=== PATIENT | female | born 1935 | race Two or more races ===

== ENCOUNTER 2021-05-28 10:06 | Inpatient (IN) | payer OTHER, BC ==
[2021-05-28] MEDS ORDERED: SODIUM CHLORIDE 0.9% 500 ML INFUS.BAG IV ONE (12:07)
[2021-05-28 12:38] LABS: HEMATOCRIT 36.8 % (32.4-45.2); HEMOGLOBIN 12.5 GM/dL (10.7-15.3); MCH 30.8 pg (25.7-33.7); MCHC 33.9 g/dl (32.0-36.0); PLATELET COUNT 129 10^3/uL (134-434); RBC 4.05 M/mm3 (3.60-5.2); RDW 14.5 % (11.6-15.6); WHITE BLOOD COUNT 9.5 K/mm3 (4.0-10.0)
[2021-05-28 13:00] LABS: CALCIUM 9.2 mg/dL (8.5-10.1)
[2021-05-28 13:04] LABS: CREATININE 0.8 mg/dL (0.55-1.3); PHOSPHOROUS 2.7 mg/dL (2.5-4.9)
[2021-05-28 13:06] LABS: BILIRUBIN,TOTAL 2.1 mg/dL (0.2-1); TOT PROT 6.2 g/dl (6.4-8.2)
[2021-05-28] MEDS ORDERED: ASPIRIN 81 MG CHEWABLE TABLETS PO ONE (13:38)
[2021-05-28 14:25] LABS: EPI CELLS 34 /uL (0-25.1); HYALINE CASTS 2 /uL (0-3.1); URINE APPEARANCE CLEAR; URINE BACTERIA 156 /uL (0-1359); URINE BILIRUBIN NEGATIVE (NEGATIVE); URINE COLOR DK YELLOW; URINE GLUCOSE (UA) NEGATIVE (NEGATIVE); URINE KETONE 1+ (NEGATIVE); URINE LEUK ESTERASE 1+ (NEGATIVE); URINE NITRITE NEGATIVE (NEGATIVE); URINE PROTEIN TRACE (NEGATIVE); URINE WBC 32 /uL (0-25.8)
[2021-05-28] MEDS ORDERED: CEFTRIAXONE 1 GM in DEXTROSE 5%-WATER - 100 ML IVPB ONE (15:12)
[2021-05-28 15:23] LABS: ANISOCYTOSIS 2+; MACROCYTOSIS 0; OVALOCYTE 2+; PLATELET ESTIMATE DECREASED; TEAR DROP CELLS 1+
[2021-05-28] MEDS ORDERED: MIDAZOLAM HCL 2 MG/2 ML SINGLE DOSE VIAL IVPUSH ONE (15:26)
[2021-05-28] MEDS ORDERED: MIDAZOLAM HCL 2 MG/2 ML SINGLE DOSE VIAL ONE (15:27)
[2021-05-28] MEDS ORDERED: ASPIRIN 81 MG CHEWABLE TABLETS ONE (15:55)
[2021-05-28] MEDS ORDERED: CEFTRIAXONE 1 GM/50 ML BAG ONE (15:56)
[2021-05-28] MEDS ORDERED: metoPROLOL SUCCINATE 25 MG TAB.SR.24H (FP) ONE (19:52)
[2021-05-28] MEDS ORDERED: LISINOPRIL 5 MG TABLET ONE (19:52)
[2021-05-28] MEDS ORDERED: ENOXAPARIN NA (PORCINE) 30 MG/0.3 ML DISP.SYRIN SQ ONE (19:53)
[2021-05-28] MEDS: ENOXAPARIN NA (PORCINE) 40 MG/0.4 ML DISP.SYRIN SQ SCH (20:02)
[2021-05-28] MEDS: metoPROLOL SUCCINATE 25 MG TAB.SR.24H (FP) PO SCH (20:03)
[2021-05-28] MEDS: LISINOPRIL 5 MG TABLET PO SCH (20:03)
[2021-05-28] MEDS ORDERED: ATORVASTATIN CA 40 MG TABLET (FP) PO SCH (22:00)
[2021-05-28 22:41] LABS: URINE RBC 17.1 /uL (0-23.9)
[2021-05-29 07:44] LABS: HEMATOCRIT 34.1 % (32.4-45.2); HEMOGLOBIN 11.6 GM/dL (10.7-15.3); MCH 31.3 pg (25.7-33.7); MEAN CELL VOLUME 92.2 fl (80-96); MEAN PLT VOLUME 8.9 fl (7.5-11.1); PLATELET COUNT 121 10^3/uL (134-434); RDW 14.6 % (11.6-15.6); WHITE BLOOD COUNT 7.6 K/mm3 (4.0-10.0)
[2021-05-29 08:19] LABS: CALCIUM 8.9 mg/dL (8.5-10.1)
[2021-05-29 08:20] LABS: ALBUMIN 2.7 g/dl (3.4-5.0); BLOOD UREA NITROGEN 39.5 mg/dL (7-18)
[2021-05-29 08:22] LABS: CHOLESTEROL 121 mg/dL (50-200)
[2021-05-29 08:23] LABS: CREATININE 0.6 mg/dL (0.55-1.3); PHOSPHOROUS 2.8 mg/dL (2.5-4.9); TRIGLYCERIDES 102 mg/dL (0-150)
[2021-05-29 08:24] LABS: TOT PROT 5.5 g/dl (6.4-8.2)
[2021-05-29 08:26] LABS: BILIRUBIN,TOTAL 1.4 mg/dL (0.2-1); HDL CHOLESTEROL 33 mg/dL (40-60)
[2021-05-29 08:32] LABS: LDL CHOLESTEROL (ONLY SJRH) 71 mg/dL (5-100)
[2021-05-29 09:30] LABS: ANISOCYTOSIS 0; MACROCYTOSIS 0
[2021-05-29 09:31] LABS: HELMET CELLS 0; HOWELL-JOLLY BODIES 0; OVALOCYTE 0; PLATELET ESTIMATE DECREASED; ROULEAU 0; SICKELED CELLS 0; TARGET CELLS 0; TEAR DROP CELLS 0; TOXIC GRANULATION 0
[2021-05-29] MEDS ORDERED: ENOXAPARIN NA (PORCINE) 30 MG/0.3 ML DISP.SYRIN SQ ONE (11:03)
[2021-05-29] MEDS ORDERED: metoPROLOL SUCCINATE 25 MG TAB.SR.24H (FP) ONE (11:03)
[2021-05-29] MEDS: ENOXAPARIN NA (PORCINE) 40 MG/0.4 ML DISP.SYRIN SQ SCH (11:04)
[2021-05-29] MEDS: metoPROLOL SUCCINATE 25 MG TAB.SR.24H (FP) PO SCH ×2 (11:05→21:57)
[2021-05-29] MEDS: LISINOPRIL 5 MG TABLET PO SCH (11:05)
[2021-05-29] MEDS ORDERED: metoPROLOL SUCCINATE 25 MG TAB.SR.24H (FP) PO ONE (12:13)
[2021-05-29] MEDS ORDERED: ATORVASTATIN CA 40 MG TABLET (FP) PO SCH (12:17)
[2021-05-29] MEDS ORDERED: CEFTRIAXONE 1 GM/50 ML BAG ONE (12:31)
[2021-05-29] MEDS: ASPIRIN 81 MG CHEWABLE TABLETS PO SCH (12:32)
[2021-05-29] MEDS: CEFTRIAXONE 1 GM in DEXTROSE 5%-WATER - 50 ML IVPB SCH (12:32)
[2021-05-29] MEDS ORDERED: LISINOPRIL 5 MG TABLET PO SCH (14:15)
[2021-05-29 18:46] LABS: EPI CELLS >36 /uL (0-25.1); HYALINE CASTS 4 /uL (0-3.1); URINE APPEARANCE CLOUDY; URINE BACTERIA 32 /uL (0-1359); URINE BILIRUBIN NEGATIVE (NEGATIVE); URINE COLOR DK YELLOW; URINE GLUCOSE (UA) NEGATIVE (NEGATIVE); URINE KETONE 1+ (NEGATIVE); URINE LEUK ESTERASE 1+ (NEGATIVE); URINE NITRITE NEGATIVE (NEGATIVE); URINE PROTEIN NEGATIVE (NEGATIVE); URINE RBC 30 /uL (0-23.9); URINE WBC 30 /uL (0-25.8)
[2021-05-29] MEDS: ATORVASTATIN CA 20 MG TABLET (FP) PO SCH (21:57)
[2021-05-29] MEDS ORDERED: metoPROLOL SUCCINATE 25 MG TAB.SR.24H (FP) PO SCH (22:00)
[2021-05-30 08:14] LABS: HEMATOCRIT 34.8 % (32.4-45.2); HEMOGLOBIN 11.4 GM/dL (10.7-15.3); MCH 30.1 pg (25.7-33.7); MCHC 32.7 g/dl (32.0-36.0); MEAN CELL VOLUME 92.2 fl (80-96); MEAN PLT VOLUME 9.2 fl (7.5-11.1); PLATELET COUNT 129 10^3/uL (134-434); RBC 3.77 M/mm3 (3.60-5.2); RDW 14.2 % (11.6-15.6); WHITE BLOOD COUNT 5.4 K/mm3 (4.0-10.0)
[2021-05-30 08:41] LABS: ALBUMIN 2.6 g/dl (3.4-5.0); CALCIUM 8.7 mg/dL (8.5-10.1)
[2021-05-30 08:42] LABS: PHOSPHOROUS 3.1 mg/dL (2.5-4.9)
[2021-05-30] MEDS ORDERED: cefTRIAXone SODIUM 1 GM VIAL ONE (08:42)
[2021-05-30] MEDS ORDERED: DEXTROSE 5%-WATER - 50 ML IVPB ONE (08:42)
[2021-05-30 08:43] LABS: CREATININE 0.6 mg/dL (0.55-1.3)
[2021-05-30 08:44] LABS: BILIRUBIN,TOTAL 1.3 mg/dL (0.2-1)
[2021-05-30 08:46] LABS: TOT PROT 5.4 g/dl (6.4-8.2)
[2021-05-30] MEDS: CEFTRIAXONE 1 GM in DEXTROSE 5%-WATER - 50 ML IVPB SCH (10:15)
[2021-05-30] MEDS: LISINOPRIL 5 MG TABLET PO SCH (10:16)
[2021-05-30] MEDS: metoPROLOL SUCCINATE 25 MG TAB.SR.24H (FP) PO SCH ×2 (10:16→21:01)
[2021-05-30] MEDS: METHIMAZOLE 5 MG TABLET PO SCH ×2 (10:20→10:30)
[2021-05-30] MEDS: ASPIRIN 81 MG CHEWABLE TABLETS PO SCH (11:12)
[2021-05-30] MEDS: ENOXAPARIN NA (PORCINE) 40 MG/0.4 ML DISP.SYRIN SQ SCH (11:12)
[2021-05-30] MEDS: KCL 10 MEQ IVPB 10 MEQ/100 ML INFUS.BAG IVPB SCH ×3 (12:27→16:31)
[2021-05-30 14:06] VITALS: BMI 17.6
[2021-05-30] MEDS: ATORVASTATIN CA 20 MG TABLET (FP) PO SCH (21:00)
[2021-05-31 07:18] LABS: HEMATOCRIT 34.1 % (32.4-45.2); HEMOGLOBIN 11.1 GM/dL (10.7-15.3); MCH 30.1 pg (25.7-33.7); MCHC 32.5 g/dl (32.0-36.0); MEAN CELL VOLUME 92.7 fl (80-96); MEAN PLT VOLUME 9.5 fl (7.5-11.1); PLATELET COUNT 136 10^3/uL (134-434); RBC 3.68 M/mm3 (3.60-5.2); RDW 14.5 % (11.6-15.6); WHITE BLOOD COUNT 4.6 K/mm3 (4.0-10.0)
[2021-05-31 07:43] LABS: ALBUMIN 2.5 g/dl (3.4-5.0); BLOOD UREA NITROGEN 29.9 mg/dL (7-18); CALCIUM 8.7 mg/dL (8.5-10.1)
[2021-05-31 07:44] LABS: MAGNESIUM 1.8 mg/dL (1.8-2.4)
[2021-05-31 07:46] LABS: BILIRUBIN,TOTAL 1.3 mg/dL (0.2-1); CREATININE 0.5 mg/dL (0.55-1.3); PHOSPHOROUS 3.3 mg/dL (2.5-4.9)
[2021-05-31 07:47] LABS: TOT PROT 5.1 g/dl (6.4-8.2)
[2021-05-31] MEDS ORDERED: DEXTROSE 5%-WATER - 50 ML IVPB ONE (09:11)
[2021-05-31] MEDS ORDERED: cefTRIAXone SODIUM 1 GM VIAL ONE (09:11)
[2021-05-31] MEDS: METHIMAZOLE 5 MG TABLET PO SCH (09:49)
[2021-05-31] MEDS: metoPROLOL SUCCINATE 25 MG TAB.SR.24H (FP) PO SCH ×2 (09:49→23:32)
[2021-05-31] MEDS: ENOXAPARIN NA (PORCINE) 40 MG/0.4 ML DISP.SYRIN SQ SCH (09:50)
[2021-05-31] MEDS: ASPIRIN 81 MG CHEWABLE TABLETS PO SCH (09:50)
[2021-05-31] MEDS: LISINOPRIL 5 MG TABLET PO SCH (09:50)
[2021-05-31] MEDS: CEFTRIAXONE 1 GM in DEXTROSE 5%-WATER - 50 ML IVPB SCH (09:50)
[2021-05-31] MEDS: ATORVASTATIN CA 20 MG TABLET (FP) PO SCH (23:32)
[2021-06-01] MEDS: ASPIRIN 81 MG CHEWABLE TABLETS PO SCH (09:32)
[2021-06-01] MEDS: METHIMAZOLE 5 MG TABLET PO SCH ×2 (09:32→17:57)
[2021-06-01] MEDS: metoPROLOL SUCCINATE 25 MG TAB.SR.24H (FP) PO SCH (09:32)
[2021-06-01] MEDS: LISINOPRIL 5 MG TABLET PO SCH (09:32)
[2021-06-01] MEDS: ENOXAPARIN NA (PORCINE) 40 MG/0.4 ML DISP.SYRIN SQ SCH (09:33)
[2021-06-01 11:17] LABS: HEMATOCRIT 37.2 % (32.4-45.2); HEMOGLOBIN 12.2 GM/dL (10.7-15.3); MCH 30.4 pg (25.7-33.7); MCHC 32.7 g/dl (32.0-36.0); MEAN CELL VOLUME 92.8 fl (80-96); MEAN PLT VOLUME 9.4 fl (7.5-11.1); PLATELET COUNT 173 10^3/uL (134-434); RBC 4.01 M/mm3 (3.60-5.2); RDW 14.4 % (11.6-15.6)
[2021-06-01 12:03] LABS: PHOSPHOROUS 2.8 mg/dL (2.5-4.9)
[2021-06-01 12:04] LABS: BILIRUBIN,TOTAL 1.6 mg/dL (0.2-1); TOT PROT 5.8 g/dl (6.4-8.2)
[2021-06-01 12:08] LABS: ALBUMIN 2.9 g/dl (3.4-5.0)
[2021-06-01 12:09] LABS: BLOOD UREA NITROGEN 27.2 mg/dL (7-18); CALCIUM 9.4 mg/dL (8.5-10.1)
[2021-06-01 12:10] LABS: MAGNESIUM 1.8 mg/dL (1.8-2.4)
[2021-06-01 12:12] LABS: CREATININE 0.5 mg/dL (0.55-1.3)
[2021-06-01] MEDS ORDERED: REGADENOSON 0.4 MG/5 ML PRE-FILLED SYRINGE IVPUSH ONE ×2 (13:15→14:15)
[2021-06-01] MEDS ORDERED: AMINOPHYLLINE 250 MG/10 ML VIAL IVPUSH ONE (13:30)
[2021-06-01] MEDS ORDERED: AMINOPHYLLINE 250 MG/10 ML VIAL ONE (13:45)
[2021-06-01] MEDS: CEFTRIAXONE 1 GM in DEXTROSE 5%-WATER - 50 ML IVPB SCH (15:49)
[2021-06-01] MEDS ORDERED: ATORVASTATIN CA 20 MG TABLET (FP) PO SCH (22:00)
[2021-06-02] MEDS ORDERED: METHIMAZOLE 10 MG TABLET PO SCH (10:00)
[2021-06-02] MEDS ORDERED: CEFTRIAXONE 1 GM in DEXTROSE 5%-WATER - 50 ML IVPB SCH (10:00)
[2021-06-02] MEDS ORDERED: ENOXAPARIN NA (PORCINE) 30 MG/0.3 ML DISP.SYRIN SQ SCH (10:00)
[2021-06-02] MEDS ORDERED: ASPIRIN 81 MG CHEWABLE TABLETS PO SCH (10:00)
[2021-06-02] MEDS ORDERED: LISINOPRIL 5 MG TABLET PO SCH (10:00)
[2021-06-02 11:08] LABS: BASO % 0.2 % (0-2.0); EOS % 1.8 % (0-4.5); HEMATOCRIT 33.3 % (32.4-45.2); HEMOGLOBIN 11.1 GM/dL (10.7-15.3); LYMPH % 10.8 % (8-40); MCH 30.5 pg (25.7-33.7); MCHC 33.3 g/dl (32.0-36.0); MEAN CELL VOLUME 91.6 fl (80-96); MEAN PLT VOLUME 9.2 fl (7.5-11.1); MONO % 5.2 % (3.8-10.2); PLATELET COUNT 152 10^3/uL (134-434); RBC 3.64 M/mm3 (3.60-5.2); RDW 14.6 % (11.6-15.6); WHITE BLOOD COUNT 4.4 K/mm3 (4.0-10.0)
[2021-06-02 11:41] LABS: CREATININE 0.5 mg/dL (0.55-1.3); PHOSPHOROUS 2.9 mg/dL (2.5-4.9)
[2021-06-02 11:43] LABS: ALBUMIN 2.5 g/dl (3.4-5.0); BILIRUBIN,TOTAL 1.4 mg/dL (0.2-1); BLOOD UREA NITROGEN 28.8 mg/dL (7-18); TOT PROT 5.3 g/dl (6.4-8.2)
[2021-06-02 11:46] LABS: CALCIUM 8.7 mg/dL (8.5-10.1)
[2021-06-02 11:47] LABS: MAGNESIUM 1.6 mg/dL (1.8-2.4)
[2021-06-02 15:18] VITALS: BP 130/53; PULSE 87; TEMP 97.8
== END 2021-06-02 18:00 | disposition home or self-care (01) | DRG 689 ==
LOC: JER 10:06 → JERBED 11:43 → J4W 05-29 21:00 → J5S 05-31 17:24
PROVIDERS: ADMIT Internal Medicine; ATTEND Internal Medicine
DX: N39.0 Urinary tract infection, site not specified (principal); E43 Unspecified severe protein-calorie malnutrition; Z68.1 Body mass index [BMI] 19.9 or less, adult; I51.81 Takotsubo syndrome; I24.8 Other forms of acute ischemic heart disease; R62.7 Adult failure to thrive; I48.91 Unspecified atrial fibrillation; E05.90 Thyrotoxicosis, unspecified without thyrotoxic crisis or storm; R53.1 Weakness; S30.0XXA Contusion of lower back and pelvis, initial encounter; W18.39XA Other fall on same level, initial encounter; Y92.098 Other place in other non-institutional residence as the place of occurrence of the external cause; Z85.3 Personal history of malignant neoplasm of breast
CPT/HCPCS: 36415; 71046-TC-FY; 73110-TC-LT-FY; 73130-TC-LT-FY; 73523-TC-FY; 78452-TC; 80053; 80061; 81003; 82550; 82962; 83605; 83735; 84100; 84439; 84443; 84484; 85025; 85027; 87040; 87086; 93005; 93010; 93017; 93306-TC; 93971; 97116-GP; 97161-GP; 99285-25; A9502; C9803; J2785; U0003; U0005

== ENCOUNTER 2021-06-09 21:10 | Inpatient (IN) | payer OTHER, BC ==
[2021-06-09] MEDS ORDERED: MAGNESIUM SULF 50% (8.12 MEQ/2 ML-1 GM VIAL) IVPB ONE (21:47)
[2021-06-09] MEDS ORDERED: MAGNESIUM SULFATE IN WATER 2 GM/50 ML IVPB IVPB ONE (22:03)
[2021-06-09] MEDS: SODIUM CHLORIDE 1,000 ML IV SCH (22:30)
[2021-06-09 22:42] LABS: BASO % 0.4 % (0-2.0); EOS % 0.5 % (0-4.5); HEMATOCRIT 35.8 % (32.4-45.2); HEMOGLOBIN 11.6 GM/dL (10.7-15.3); LYMPH % 8.2 % (8-40); MCH 30.1 pg (25.7-33.7); MCHC 32.5 g/dl (32.0-36.0); MEAN CELL VOLUME 92.7 fl (80-96); MEAN PLT VOLUME 9.5 fl (7.5-11.1); MONO % 3.2 % (3.8-10.2); NEUT % 87.7 % (42.8-82.8); PLATELET COUNT 126 10^3/uL (134-434); RBC 3.87 M/mm3 (3.60-5.2); RDW 14.9 % (11.6-15.6); WHITE BLOOD COUNT 5.9 K/mm3 (4.0-10.0)
[2021-06-09 22:47] LABS: INR 1.22 (0.83-1.09); PROTHROMBIN TIME (PATIENT) 14.1 SEC (9.7-13.0)
[2021-06-09 22:50] LABS: ACTIVATED PTT 28.3 SECONDS (25.2-36.5)
[2021-06-09 23:02] LABS: BLOOD UREA NITROGEN 24.2 mg/dL (7-18); CALCIUM 9.5 mg/dL (8.5-10.1)
[2021-06-09 23:05] LABS: CREATININE 0.9 mg/dL (0.55-1.3)
[2021-06-09 23:07] LABS: BILIRUBIN,TOTAL 1.3 mg/dL (0.2-1)
[2021-06-09] MEDS ORDERED: ATORVASTATIN CA 80 MG TABLET (FP) PO ONE (23:41)
[2021-06-09] MEDS ORDERED: ASPIRIN 81 MG CHEWABLE TABLETS PO ONE (23:41)
[2021-06-09] MEDS ORDERED: ATORVASTATIN CA 80 MG TABLET (FP) ONE (23:45)
[2021-06-09] MEDS ORDERED: ASPIRIN 81 MG CHEWABLE TABLETS ONE (23:45)
[2021-06-10] MEDS ORDERED: levETIRAcetam 500 MG/5 ML INJECTION VIAL IVPB ONE ×2 (02:43→12:26)
[2021-06-10] MEDS: levETIRAcetam 500 MG/5 ML INJECTION VIAL IVPB SCH ×2 (02:49→12:34)
[2021-06-10 11:05] LABS: BILIRUBIN,DIRECT 0.5 mg/dL (0.0-0.2)
[2021-06-10] MEDS ORDERED: PANTOPRAZOLE SODIUM 40 MG/100 ML BAG IVPB ONE (12:27)
[2021-06-10] MEDS: PANTOPRAZOLE SODIUM 40 MG VIAL IVPUSH SCH (12:34)
[2021-06-10 21:14] LABS: BASO % 0.2 % (0-2.0); EOS % 0.5 % (0-4.5); HEMATOCRIT 32.6 % (32.4-45.2); HEMOGLOBIN 10.7 GM/dL (10.7-15.3); LYMPH % 9.9 % (8-40); MCH 30.5 pg (25.7-33.7); MCHC 32.9 g/dl (32.0-36.0); MEAN CELL VOLUME 92.6 fl (80-96); MEAN PLT VOLUME 9.2 fl (7.5-11.1); NEUT % 85.4 % (42.8-82.8); PLATELET COUNT 130 10^3/uL (134-434); RBC 3.53 M/mm3 (3.60-5.2); RDW 14.9 % (11.6-15.6); WHITE BLOOD COUNT 5.9 K/mm3 (4.0-10.0)
[2021-06-10 21:33] LABS: CALCIUM 8.7 mg/dL (8.5-10.1)
[2021-06-10 21:34] LABS: ALBUMIN 2.6 g/dl (3.4-5.0); BLOOD UREA NITROGEN 20.2 mg/dL (7-18); MAGNESIUM 2.1 mg/dL (1.8-2.4)
[2021-06-10 21:37] LABS: CREATININE 0.8 mg/dL (0.55-1.3); PHOSPHOROUS 2.6 mg/dL (2.5-4.9)
[2021-06-10 21:38] LABS: BILIRUBIN,TOTAL 0.9 mg/dL (0.2-1); TOT PROT 5.3 g/dl (6.4-8.2)
[2021-06-11] MEDS: metoPROLOL SUCCINATE 25 MG TAB.SR.24H (FP) PO SCH ×3 (06:18→22:22)
[2021-06-11] MEDS ORDERED: levETIRAcetam 500 MG/5 ML INJECTION VIAL IVPB ONE ×2 (06:21→10:21)
[2021-06-11] MEDS ORDERED: ATORVASTATIN CA 20 MG TABLET (FP) ONE (06:21)
[2021-06-11] MEDS: ATORVASTATIN CA 20 MG TABLET (FP) PO SCH ×2 (06:25→22:22)
[2021-06-11] MEDS: levETIRAcetam 500 MG/5 ML INJECTION VIAL IVPB SCH ×3 (06:31→22:22)
[2021-06-11] MEDS: SODIUM CHLORIDE 1,000 ML IV SCH (06:32)
[2021-06-11] MEDS ORDERED: PANTOPRAZOLE SODIUM 40 MG/100 ML BAG IVPB ONE (10:19)
[2021-06-11] MEDS ORDERED: ASPIRIN 81 MG CHEWABLE TABLETS ONE (10:21)
[2021-06-11] MEDS ORDERED: LISINOPRIL 5 MG TABLET ONE (10:22)
[2021-06-11] MEDS: METHIMAZOLE 10 MG TABLET PO SCH (10:37)
[2021-06-11] MEDS: ASPIRIN 81 MG CHEWABLE TABLETS PO SCH (10:37)
[2021-06-11] MEDS: LISINOPRIL 5 MG TABLET PO SCH (10:37)
[2021-06-11] MEDS: PANTOPRAZOLE SODIUM 40 MG VIAL IVPUSH SCH (10:37)
[2021-06-11 10:52] LABS: HEMOGLOBIN 11.3 GM/dL (10.7-15.3); MCH 30.3 pg (25.7-33.7); MCHC 32.4 g/dl (32.0-36.0); MEAN CELL VOLUME 93.6 fl (80-96); MEAN PLT VOLUME 9.6 fl (7.5-11.1); PLATELET COUNT 134 10^3/uL (134-434); RBC 3.74 M/mm3 (3.60-5.2); RDW 15.6 % (11.6-15.6); WHITE BLOOD COUNT 7.2 K/mm3 (4.0-10.0)
[2021-06-11 11:30] LABS: ALBUMIN 2.6 g/dl (3.4-5.0); BLOOD UREA NITROGEN 18.2 mg/dL (7-18); CALCIUM 8.6 mg/dL (8.5-10.1); MAGNESIUM 1.9 mg/dL (1.8-2.4); PHOSPHOROUS 2.9 mg/dL (2.5-4.9)
[2021-06-11 11:32] LABS: BILIRUBIN,TOTAL 1.1 mg/dL (0.2-1)
[2021-06-11 11:33] LABS: CREATININE 0.7 mg/dL (0.55-1.3); TOT PROT 5.5 g/dl (6.4-8.2)
[2021-06-12 09:01] LABS: HEMATOCRIT 32.4 % (32.4-45.2); HEMOGLOBIN 10.9 GM/dL (10.7-15.3); MCH 30.9 pg (25.7-33.7); MCHC 33.6 g/dl (32.0-36.0); MEAN CELL VOLUME 92.2 fl (80-96); MEAN PLT VOLUME 9.6 fl (7.5-11.1); PLATELET COUNT 115 10^3/uL (134-434); RBC 3.51 M/mm3 (3.60-5.2); WHITE BLOOD COUNT 5.1 K/mm3 (4.0-10.0)
[2021-06-12 09:07] LABS: CALCIUM 8.7 mg/dL (8.5-10.1)
[2021-06-12 09:08] LABS: ALBUMIN 2.5 g/dl (3.4-5.0); BLOOD UREA NITROGEN 16.5 mg/dL (7-18); MAGNESIUM 1.8 mg/dL (1.8-2.4)
[2021-06-12 09:11] LABS: CREATININE 0.6 mg/dL (0.55-1.3); PHOSPHOROUS 2.7 mg/dL (2.5-4.9)
[2021-06-12 09:12] LABS: BILIRUBIN,TOTAL 1.1 mg/dL (0.2-1); TOT PROT 5.3 g/dl (6.4-8.2)
[2021-06-12] MEDS: ASPIRIN 81 MG CHEWABLE TABLETS PO SCH (10:27)
[2021-06-12] MEDS: LISINOPRIL 5 MG TABLET PO SCH (10:27)
[2021-06-12] MEDS: METHIMAZOLE 10 MG TABLET PO SCH (10:27)
[2021-06-12] MEDS: PANTOPRAZOLE SODIUM 40 MG VIAL IVPUSH SCH (10:28)
[2021-06-12] MEDS: levETIRAcetam 500 MG/5 ML INJECTION VIAL IVPB SCH ×2 (10:28→21:12)
[2021-06-12] MEDS: metoPROLOL SUCCINATE 25 MG TAB.SR.24H (FP) PO SCH ×2 (10:28→21:12)
[2021-06-12] MEDS: ATORVASTATIN CA 20 MG TABLET (FP) PO SCH (21:12)
[2021-06-12] MEDS: APIXABAN 2.5 MG TABLET PO SCH (21:12)
[2021-06-13] MEDS: metoPROLOL SUCCINATE 25 MG TAB.SR.24H (FP) PO SCH (09:50)
[2021-06-13] MEDS: LISINOPRIL 5 MG TABLET PO SCH (09:51)
[2021-06-13] MEDS: ASPIRIN 81 MG CHEWABLE TABLETS PO SCH (09:51)
[2021-06-13] MEDS: APIXABAN 2.5 MG TABLET PO SCH (09:52)
[2021-06-13] MEDS: METHIMAZOLE 10 MG TABLET PO SCH (09:52)
[2021-06-13] MEDS: levETIRAcetam 500 MG/5 ML INJECTION VIAL IVPB SCH (09:53)
[2021-06-13] MEDS: PANTOPRAZOLE SODIUM 40 MG VIAL IVPUSH SCH (09:53)
[2021-06-13 14:05] VITALS: BP 126/60; PULSE 77; TEMP 98.5
[2021-06-13 22:14] VITALS: BMI 20.9
== END 2021-06-13 16:12 | disposition home or self-care (01) | DRG 65 ==
LOC: JER 21:10 → JERBED 23:42 → J4W 06-11 17:26
PROVIDERS: ADMIT Internal Medicine; ATTEND Internal Medicine
DX: I63.9 Cerebral infarction, unspecified (principal); I47.1 Supraventricular tachycardia; I24.8 Other forms of acute ischemic heart disease; I51.81 Takotsubo syndrome; E78.5 Hyperlipidemia, unspecified; I48.91 Unspecified atrial fibrillation; I10 Essential (primary) hypertension; E05.90 Thyrotoxicosis, unspecified without thyrotoxic crisis or storm; E11.9 Type 2 diabetes mellitus without complications; G40.909 Epilepsy, unspecified, not intractable, without status epilepticus; R29.6 Repeated falls; M89.9 Disorder of bone, unspecified; Z85.3 Personal history of malignant neoplasm of breast
CPT/HCPCS: 36415; 70450-TC; 70551-TC; 72125-TC; 80053; 80061; 82248; 82550; 82607; 82962; 83036; 83735; 84100; 84436; 84443; 84479; 84484; 85025; 85027; 85610; 85730; 86780; 86850; 86900; 86901; 93005; 93010; 93306-TC; 93880-TC; 97116-GP; 97161-GP; 99285-25; C9803; U0003; U0005

== ENCOUNTER 2021-09-28 13:30 | Inpatient (IN) | payer OTHER, BC ==
[2021-09-28] MEDS ORDERED: LACTATED RINGERS SOLUTION 1000 ML INFUS.BAG IV ONE ×2 (14:11→17:05)
[2021-09-28 15:07] LABS: HEMATOCRIT 39.6 % (32.4-45.2); HEMOGLOBIN 13.2 GM/dL (10.7-15.3); MCH 33.2 pg (25.7-33.7); MCHC 33.3 g/dl (32.0-36.0); MEAN CELL VOLUME 99.8 fl (80-96); MEAN PLT VOLUME 9.4 fl (7.5-11.1); PLATELET COUNT 187 10^3/uL (134-434); RBC 3.97 M/mm3 (3.60-5.2); RDW 16.6 % (11.6-15.6); WHITE BLOOD COUNT 12.2 K/mm3 (4.0-10.0)
[2021-09-28 15:18] LABS: ACTIVATED PTT 34.2 SECONDS (25.2-36.5); INR 1.36 (0.83-1.09); PROTHROMBIN TIME (PATIENT) 15.7 SEC (9.7-13.0)
[2021-09-28 15:20] LABS: VENOUS BASE EXCESS -5.8 mmol/L (-2-2); VENOUS O2 SATURATION 29.3 % (70-80); VENOUS PCO2 45.1 mmHg (38-52); VENOUS PH 7.282 (7.310-7.410)
[2021-09-28 15:37] LABS: CHLORIDE 105 mmol/L (98-107); SODIUM 139 mmol/L (136-145)
[2021-09-28 15:38] LABS: CALCIUM 9.5 mg/dL (8.5-10.1); GLUCOSE,RANDOM 135 mg/dL (74-106)
[2021-09-28 15:39] LABS: ALBUMIN 3.7 g/dl (3.4-5.0); ANION GAP 13 MMOL/L (8-16); ANISOCYTOSIS 1+; BLOOD UREA NITROGEN 42.2 mg/dL (7-18); CO2 21 mmol/L (21-32); MACROCYTOSIS 0; OVALOCYTE 2+
[2021-09-28 15:42] LABS: CREATININE 1.9 mg/dL (0.55-1.3); SGOT/AST 25 U/L (15-37)
[2021-09-28 15:44] LABS: BILIRUBIN,TOTAL 1.3 mg/dL (0.2-1); TOT PROT 6.8 g/dl (6.4-8.2)
[2021-09-28 15:45] LABS: ALK PHOS 96 U/L (45-117); LACTIC ACID 2.5 mmol/L (0.4-2.0)
[2021-09-28 15:55] LABS: SGPT/ALT 26 U/L (13-61)
[2021-09-28 16:15] LABS: EPI CELLS >36 /uL (0-25.1); HYALINE CASTS 26 /uL (0-3.1); URINE APPEARANCE TURBID; URINE BACTERIA 1165 /uL (0-1359); URINE BILIRUBIN NEGATIVE (NEGATIVE); URINE COLOR DK YELLOW; URINE GLUCOSE (UA) NEGATIVE (NEGATIVE); URINE KETONE TRACE (NEGATIVE); URINE LEUK ESTERASE 2+ (NEGATIVE); URINE NITRITE NEGATIVE (NEGATIVE); URINE PROTEIN 3+ (NEGATIVE); URINE RBC 63 /uL (0-23.9); URINE WBC 620 /uL (0-25.8)
[2021-09-28] MEDS ORDERED: CEFTRIAXONE 1,000 MG in DEXTROSE 5%-WATER - 50 ML IVPB ONE (16:17)
[2021-09-28] MEDS ORDERED: CEFTRIAXONE 1 GM/50 ML BAG ONE (16:40)
[2021-09-28] MEDS ORDERED: DEXAMETHASONE SOD PHOSPHATE 10 MG/1 ML VIAL IVPUSH ONE (17:12)
[2021-09-28] MEDS ORDERED: SODIUM CHLORIDE 1,000 ML IV SCH (18:45)
[2021-09-28] MEDS ORDERED: REMDESIVIR 200 MG in SODIUM CHLORIDE 250 ML IVPB ONE (19:38)
[2021-09-28] MEDS: APIXABAN 2.5 MG TABLET PO SCH (22:14)
[2021-09-28] MEDS: levETIRAcetam 500 MG TABLET (FP) PO SCH (22:14)
[2021-09-28] MEDS: ATORVASTATIN CA 20 MG TABLET (FP) PO SCH (22:14)
[2021-09-29 09:12] LABS: VENOUS BASE EXCESS -4.5 mmol/L (-2-2); VENOUS O2 SATURATION 84.1 % (70-80); VENOUS PCO2 39.8 mmHg (38-52); VENOUS PH 7.338 (7.310-7.410)
[2021-09-29 09:40] LABS: HEMATOCRIT 32.9 % (32.4-45.2); HEMOGLOBIN 11.1 GM/dL (10.7-15.3); MCH 33.3 pg (25.7-33.7); MCHC 33.6 g/dl (32.0-36.0); MEAN CELL VOLUME 98.9 fl (80-96); MEAN PLT VOLUME 9.7 fl (7.5-11.1); PLATELET COUNT 139 10^3/uL (134-434); RBC 3.33 M/mm3 (3.60-5.2); RDW 16.6 % (11.6-15.6); WHITE BLOOD COUNT 8.1 K/mm3 (4.0-10.0)
[2021-09-29 10:13] LABS: CALCIUM 8.3 mg/dL (8.5-10.1)
[2021-09-29 10:14] LABS: BLOOD UREA NITROGEN 36.6 mg/dL (7-18)
[2021-09-29 10:16] LABS: CREATININE 1.3 mg/dL (0.55-1.3)
[2021-09-29 10:17] LABS: PHOSPHOROUS 3.6 mg/dL (2.5-4.9)
[2021-09-29 10:18] LABS: BILIRUBIN,TOTAL 0.7 mg/dL (0.2-1); TOT PROT 5.6 g/dl (6.4-8.2)
[2021-09-29] MEDS ORDERED: DEXTROSE 5%-WATER - 50 ML IVPB ONE (10:39)
[2021-09-29] MEDS ORDERED: cefTRIAXone SODIUM 1 GM VIAL ONE (10:39)
[2021-09-29] MEDS: APIXABAN 2.5 MG TABLET PO SCH ×2 (10:40→21:12)
[2021-09-29] MEDS: PANTOPRAZOLE SODIUM 40 MG VIAL IVPUSH SCH (10:40)
[2021-09-29] MEDS: levETIRAcetam 500 MG TABLET (FP) PO SCH ×2 (10:40→21:12)
[2021-09-29] MEDS: DEXAMETHASONE SOD PHOSPHATE 10 MG/1 ML VIAL IVPUSH SCH (10:40)
[2021-09-29] MEDS: METHIMAZOLE 10 MG TABLET PO SCH (10:41)
[2021-09-29] MEDS: CEFTRIAXONE 1 GM in DEXTROSE 5%-WATER - 50 ML IVPB SCH (10:41)
[2021-09-29 11:17] LABS: ANISOCYTOSIS 0; HELMET CELLS 0; HOWELL-JOLLY BODIES 0; MACROCYTOSIS 0; OVALOCYTE 0; ROULEAU 0; SICKELED CELLS 0; TARGET CELLS 0; TEAR DROP CELLS 0; TOXIC GRANULATION 0
[2021-09-29] MEDS: REMDESIVIR 100 MG in SODIUM CHLORIDE 250 ML IVPB SCH (18:33)
[2021-09-29] MEDS: ATORVASTATIN CA 20 MG TABLET (FP) PO SCH (21:13)
[2021-09-30] MEDS ORDERED: cefTRIAXone SODIUM 1 GM VIAL ONE (08:12)
[2021-09-30] MEDS ORDERED: DEXTROSE 5%-WATER - 50 ML IVPB ONE (08:12)
[2021-09-30 09:43] LABS: HEMATOCRIT 32.1 % (32.4-45.2); HEMOGLOBIN 10.8 GM/dL (10.7-15.3); MCH 33.4 pg (25.7-33.7); MCHC 33.7 g/dl (32.0-36.0); MEAN CELL VOLUME 99.2 fl (80-96); MEAN PLT VOLUME 9.5 fl (7.5-11.1); PLATELET COUNT 115 10^3/uL (134-434); RBC 3.24 M/mm3 (3.60-5.2); RDW 16.5 % (11.6-15.6); WHITE BLOOD COUNT 5.3 K/mm3 (4.0-10.0)
[2021-09-30] MEDS: DEXAMETHASONE SOD PHOSPHATE 10 MG/1 ML VIAL IVPUSH SCH (10:10)
[2021-09-30] MEDS: CEFTRIAXONE 1 GM in DEXTROSE 5%-WATER - 50 ML IVPB SCH (10:10)
[2021-09-30] MEDS: PANTOPRAZOLE SODIUM 40 MG VIAL IVPUSH SCH (10:11)
[2021-09-30] MEDS: APIXABAN 2.5 MG TABLET PO SCH ×2 (10:11→21:46)
[2021-09-30] MEDS: METHIMAZOLE 10 MG TABLET PO SCH (10:11)
[2021-09-30] MEDS: levETIRAcetam 500 MG TABLET (FP) PO SCH ×2 (10:11→21:46)
[2021-09-30 10:16] LABS: BLOOD UREA NITROGEN 28.8 mg/dL (7-18)
[2021-09-30 10:19] LABS: CALCIUM 8.8 mg/dL (8.5-10.1)
[2021-09-30] MEDS ORDERED: METHIMAZOLE 5 MG TABLET PO SCH (16:00)
[2021-09-30] MEDS: REMDESIVIR 100 MG in SODIUM CHLORIDE 250 ML IVPB SCH (17:59)
[2021-09-30] MEDS: ATORVASTATIN CA 20 MG TABLET (FP) PO SCH (21:46)
[2021-10-01 08:23] LABS: HEMATOCRIT 30.1 % (32.4-45.2); HEMOGLOBIN 10.3 GM/dL (10.7-15.3); MCH 33.8 pg (25.7-33.7); MCHC 34.1 g/dl (32.0-36.0); MEAN CELL VOLUME 99.1 fl (80-96); PLATELET COUNT 97 10^3/uL (134-434); RBC 3.03 M/mm3 (3.60-5.2)
[2021-10-01 08:39] LABS: ALBUMIN 2.6 g/dl (3.4-5.0); BLOOD UREA NITROGEN 20.9 mg/dL (7-18); CALCIUM 8.4 mg/dL (8.5-10.1)
[2021-10-01 08:42] LABS: CREATININE 0.9 mg/dL (0.55-1.3)
[2021-10-01 08:44] LABS: BILIRUBIN,TOTAL 0.5 mg/dL (0.2-1); TOT PROT 5.2 g/dl (6.4-8.2)
[2021-10-01] MEDS: APIXABAN 2.5 MG TABLET PO SCH ×2 (09:17→21:16)
[2021-10-01] MEDS: METHIMAZOLE 5 MG TABLET PO SCH (09:18)
[2021-10-01] MEDS: levETIRAcetam 500 MG TABLET (FP) PO SCH ×2 (09:18→21:16)
[2021-10-01] MEDS: DEXAMETHASONE SOD PHOSPHATE 10 MG/1 ML VIAL IVPUSH SCH (09:18)
[2021-10-01] MEDS: PANTOPRAZOLE SODIUM 40 MG VIAL IVPUSH SCH (09:22)
[2021-10-01 11:43] LABS: ANISOCYTOSIS 1+; MACROCYTOSIS 1+; OVALOCYTE 1+; PLATELET ESTIMATE DECREASED
[2021-10-01] MEDS: REMDESIVIR 100 MG in SODIUM CHLORIDE 250 ML IVPB SCH (17:29)
[2021-10-01] MEDS: ATORVASTATIN CA 20 MG TABLET (FP) PO SCH (21:16)
[2021-10-02 09:01] LABS: HEMATOCRIT 31.6 % (32.4-45.2); HEMOGLOBIN 10.8 GM/dL (10.7-15.3); MCH 33.8 pg (25.7-33.7); MCHC 34.1 g/dl (32.0-36.0); MEAN CELL VOLUME 99.1 fl (80-96); MEAN PLT VOLUME 9.3 fl (7.5-11.1); PLATELET COUNT 104 10^3/uL (134-434); RBC 3.19 M/mm3 (3.60-5.2); WHITE BLOOD COUNT 5.4 K/mm3 (4.0-10.0)
[2021-10-02] MEDS: DEXAMETHASONE SOD PHOSPHATE 10 MG/1 ML VIAL IVPUSH SCH (09:45)
[2021-10-02] MEDS: levETIRAcetam 500 MG TABLET (FP) PO SCH ×2 (09:46→21:11)
[2021-10-02] MEDS: METHIMAZOLE 5 MG TABLET PO SCH (09:46)
[2021-10-02] MEDS: APIXABAN 2.5 MG TABLET PO SCH ×2 (09:46→21:11)
[2021-10-02] MEDS: PANTOPRAZOLE SODIUM 40 MG VIAL IVPUSH SCH (09:47)
[2021-10-02 10:25] LABS: ANISOCYTOSIS 0; HELMET CELLS 0; HOWELL-JOLLY BODIES 0; MACROCYTOSIS 0; OVALOCYTE 0; ROULEAU 0; SICKELED CELLS 0; TARGET CELLS 0; TEAR DROP CELLS 0; TOXIC GRANULATION 0
[2021-10-02 13:44] VITALS: BMI 16.2
[2021-10-02] MEDS: REMDESIVIR 100 MG in SODIUM CHLORIDE 250 ML IVPB SCH (18:15)
[2021-10-02] MEDS: ATORVASTATIN CA 20 MG TABLET (FP) PO SCH (21:11)
[2021-10-03 07:57] LABS: CALCIUM 8.4 mg/dL (8.5-10.1)
[2021-10-03 07:58] LABS: BLOOD UREA NITROGEN 17.5 mg/dL (7-18)
[2021-10-03 08:01] LABS: CREATININE 0.9 mg/dL (0.55-1.3)
[2021-10-03 08:28] LABS: HEMATOCRIT 34.4 % (32.4-45.2); HEMOGLOBIN 11.8 GM/dL (10.7-15.3); MCH 33.8 pg (25.7-33.7); MCHC 34.4 g/dl (32.0-36.0); MEAN CELL VOLUME 98.3 fl (80-96); MEAN PLT VOLUME 8.7 fl (7.5-11.1); PLATELET COUNT 112 10^3/uL (134-434); RDW 16.4 % (11.6-15.6); WHITE BLOOD COUNT 4.4 K/mm3 (4.0-10.0)
[2021-10-03 10:23] LABS: ANISOCYTOSIS 1+; MACROCYTOSIS 0; PLATELET ESTIMATE DECREASED
[2021-10-03] MEDS: levETIRAcetam 500 MG TABLET (FP) PO SCH ×2 (10:44→21:12)
[2021-10-03] MEDS: DEXAMETHASONE SOD PHOSPHATE 10 MG/1 ML VIAL IVPUSH SCH (10:44)
[2021-10-03] MEDS: METHIMAZOLE 5 MG TABLET PO SCH (10:44)
[2021-10-03] MEDS: PANTOPRAZOLE SODIUM 40 MG VIAL IVPUSH SCH (10:44)
[2021-10-03] MEDS: APIXABAN 2.5 MG TABLET PO SCH ×2 (10:44→21:12)
[2021-10-03] MEDS: busPIRone HCL 5 MG TABLET PO SCH ×2 (14:20→21:12)
[2021-10-03] MEDS: ATORVASTATIN CA 20 MG TABLET (FP) PO SCH (21:12)
[2021-10-04] MEDS: PANTOPRAZOLE SODIUM 40 MG VIAL IVPUSH SCH (09:13)
[2021-10-04] MEDS: DEXAMETHASONE SOD PHOSPHATE 10 MG/1 ML VIAL IVPUSH SCH (09:13)
[2021-10-04] MEDS: APIXABAN 2.5 MG TABLET PO SCH (09:14)
[2021-10-04] MEDS: busPIRone HCL 5 MG TABLET PO SCH (09:15)
[2021-10-04] MEDS: levETIRAcetam 500 MG TABLET (FP) PO SCH (09:15)
[2021-10-04] MEDS: METHIMAZOLE 5 MG TABLET PO SCH (09:15)
[2021-10-04] MEDS ORDERED: metoPROLOL SUCCINATE 25 MG TAB.SR.24H (FP) PO SCH (10:00)
[2021-10-04 15:47] VITALS: BP 130/81; PULSE 98; TEMP 98.2
== END 2021-10-04 18:33 | disposition home or self-care (01) | DRG 177 ==
LOC: JER 13:30 → JERBED 16:41 → J4S 19:42
PROVIDERS: ADMIT Internal Medicine; ATTEND Internal Medicine
PROC: XW033E5 Introduction of Remdesivir Anti-infective into Peripheral Vein, Percutaneous Approach, New Technology Group 5 (ICD-10-PCS; principal; 2021-09-28)
PROC: 3E0333Z Introduction of Anti-inflammatory into Peripheral Vein, Percutaneous Approach (ICD-10-PCS; 2021-09-28)
DX: U07.1 COVID-19 (principal); J12.82 Pneumonia due to coronavirus disease 2019; N17.9 Acute kidney failure, unspecified; N39.0 Urinary tract infection, site not specified; I50.22 Chronic systolic (congestive) heart failure; I42.8 Other cardiomyopathies; G40.909 Epilepsy, unspecified, not intractable, without status epilepticus; E78.5 Hyperlipidemia, unspecified; I48.91 Unspecified atrial fibrillation; E05.90 Thyrotoxicosis, unspecified without thyrotoxic crisis or storm; R29.6 Repeated falls; R55 Syncope and collapse; D69.6 Thrombocytopenia, unspecified; R09.02 Hypoxemia; D72.829 Elevated white blood cell count, unspecified; I11.0 Hypertensive heart disease with heart failure; E11.9 Type 2 diabetes mellitus without complications; I27.20 Pulmonary hypertension, unspecified; I69.398 Other sequelae of cerebral infarction; B95.4 Other streptococcus as the cause of diseases classified elsewhere; W18.39XA Other fall on same level, initial encounter; Y92.098 Other place in other non-institutional residence as the place of occurrence of the external cause; Z85.3 Personal history of malignant neoplasm of breast
CPT/HCPCS: 0241U-QW; 36415; 71045-TC-FY; 80048; 80053; 80177; 81003; 82550; 82553; 82728; 82803; 83540; 83550; 83605; 83735; 84100; 84439; 84443; 84484; 85025; 85027; 85379; 85610; 85730; 86140; 87040; 87086; 93005; 93010; 94761; 97116-GP; 97161-GP; 99285-25; C9399; J1100

== ENCOUNTER 2022-07-23 00:12 | Inpatient (IN) | payer OTHER, BC ==
[2022-07-23] MEDS ORDERED: SODIUM CHLORIDE 1,000 ML IV SCH ×2 (01:15→11:45)
[2022-07-23 01:26] LABS: BASO % 0.3 % (0-2.0); EOS % 0.9 % (0-4.5); HEMATOCRIT 36.2 % (32.4-45.2); LYMPH % 6.9 % (8-40); MCH 33.2 pg (25.7-33.7); MCHC 33.1 g/dl (32.0-36.0); MEAN CELL VOLUME 100.1 fl (80-96); MONO % 3.7 % (3.8-10.2); NEUT % 88.2 % (42.8-82.8); PLATELET COUNT 123 10^3/uL (134-434); RBC 3.61 M/mm3 (3.60-5.2); RDW 14.6 % (11.6-15.6); WHITE BLOOD COUNT 5.8 K/mm3 (4.0-10.0)
[2022-07-23 01:35] LABS: INR 1.61 (0.83-1.09); PROTHROMBIN TIME (PATIENT) 18.6 SEC (9.7-13.0)
[2022-07-23 01:38] LABS: ACTIVATED PTT 37.2 SECONDS (25.2-36.5)
[2022-07-23 01:54] LABS: CALCIUM 8.7 mg/dL (8.5-10.1)
[2022-07-23 01:56] LABS: ALBUMIN 3.4 g/dl (3.4-5.0)
[2022-07-23 01:57] LABS: BLOOD UREA NITROGEN 35.3 mg/dL (7-18)
[2022-07-23] MEDS ORDERED: RAPID SEQUENCE INTUBATION KIT NR ONE (01:57)
[2022-07-23 01:58] LABS: CREATININE 1.2 mg/dL (0.55-1.3)
[2022-07-23 02:01] LABS: TOT PROT 6.3 g/dl (6.4-8.2)
[2022-07-23 02:02] LABS: BILIRUBIN,TOTAL 1.3 mg/dL (0.2-1)
[2022-07-23] MEDS ORDERED: PROPOFOL 1,000,000 MCG/100 ML VIAL ONE ×2 (02:07→02:11)
[2022-07-23] MEDS: PROPOFOL 1,000,000 MCG/100 ML VIAL IVPB SCH ×2 (03:34→07:30)
[2022-07-23] MEDS ORDERED: levETIRAcetam 500 MG/5 ML INJECTION VIAL IVPB ONE (03:36)
[2022-07-23] MEDS: levETIRAcetam 500 MG/5 ML INJECTION VIAL IVPB SCH ×2 (03:43→15:14)
[2022-07-23 04:44] LABS: EPI CELLS 9 /uL (0-25.1); HYALINE CASTS 1 /uL (0-3.1); URINE APPEARANCE CLEAR; URINE BACTERIA 15 /uL (0-1359); URINE BILIRUBIN NEGATIVE (NEGATIVE); URINE COLOR YELLOW; URINE GLUCOSE (UA) NEGATIVE (NEGATIVE); URINE KETONE NEGATIVE (NEGATIVE); URINE LEUK ESTERASE NEGATIVE (NEGATIVE); URINE NITRITE NEGATIVE (NEGATIVE); URINE PROTEIN TRACE (NEGATIVE); URINE RBC 37 /uL (0-23.9); URINE WBC 4 /uL (0-25.8)
[2022-07-23] MEDS ORDERED: FENTANYL NS IVPB 500 MCG/100 ML BAG IVPB ONE (05:08)
[2022-07-23] MEDS: FENTANYL NS IVPB 500 MCG/100 ML BAG IVPB SCH ×2 (05:20→07:30)
[2022-07-23 06:04] LABS: ARTERIAL BLD GAS O2 SATURATION 99.6 % (95-98); ARTERIAL BLOOD GAS PO2 268.1 mmHg (80-100); ARTERIAL BLOOD GAS pH 7.405 (7.350-7.450)
[2022-07-23 06:29] LABS: ALLENS TEST POSITIVE; VENT MODE V-A/C; VENT RATE 14
[2022-07-23 07:10] LABS: BASO % 0.2 % (0-2.0); EOS % 0.2 % (0-4.5); HEMOGLOBIN 11.7 GM/dL (10.7-15.3); LYMPH % 6.6 % (8-40); MCH 34.3 pg (25.7-33.7); MCHC 33.3 g/dl (32.0-36.0); MEAN PLT VOLUME 9.1 fl (7.5-11.1); MONO % 4.3 % (3.8-10.2); NEUT % 88.7 % (42.8-82.8); PLATELET COUNT 144 10^3/uL (134-434); RDW 14.4 % (11.6-15.6); WHITE BLOOD COUNT 7.4 K/mm3 (4.0-10.0)
[2022-07-23 07:18] LABS: CALCIUM 8.7 mg/dL (8.5-10.1)
[2022-07-23 07:20] LABS: ALBUMIN 3.4 g/dl (3.4-5.0); BLOOD UREA NITROGEN 37.9 mg/dL (7-18); MAGNESIUM 1.7 mg/dL (1.8-2.4)
[2022-07-23 07:22] LABS: CREATININE 1.3 mg/dL (0.55-1.3); PHOSPHOROUS 3.2 mg/dL (2.5-4.9)
[2022-07-23 07:23] LABS: BILIRUBIN,TOTAL 1.4 mg/dL (0.2-1); TOT PROT 6.1 g/dl (6.4-8.2)
[2022-07-23 08:12] LABS: INR 1.57 (0.83-1.09); PROTHROMBIN TIME (PATIENT) 18.1 SEC (9.7-13.0)
[2022-07-23] MEDS ORDERED: METHIMAZOLE 5 MG TABLET NGT SCH (10:00)
[2022-07-23] MEDS ORDERED: APIXABAN 2.5 MG TABLET PO SCH (10:00)
[2022-07-23] MEDS ORDERED: METOPROLOL TARTRATE 50 MG TABLET (FP) NGT SCH (10:00)
[2022-07-23 11:36] LABS: BILIRUBIN,DIRECT 0.6 mg/dL (0.0-0.2)
[2022-07-23] MEDS ORDERED: ENOXAPARIN NA (PORCINE) 40 MG/0.4 ML DISP.SYRIN SQ SCH (12:45)
[2022-07-23] MEDS ORDERED: ENOXAPARIN NA (PORCINE) 40 MG/0.4 ML DISP.SYRIN SQ ONE (12:45)
[2022-07-23] MEDS ORDERED: METOPROLOL TARTRATE 5 MG/5 ML VIAL IVPUSH SCH ×2 (13:30→22:00)
[2022-07-23] MEDS: METOPROLOL TARTRATE 5 MG/5 ML VIAL IVPUSH SCH ×2 (15:18→20:49)
[2022-07-23] MEDS: ENOXAPARIN NA (PORCINE) 40 MG/0.4 ML DISP.SYRIN SQ SCH (19:10)
[2022-07-23] MEDS: MUPIROCIN 2% TOPICAL OINTMENT FOR DECOLONIZATION NS SCH ×2 (19:26→21:32)
[2022-07-23] MEDS: CHLORHEXIDINE GLUCONATE 4% CLEANSER FOR DECOLONIZATION TP SCH (21:32)
[2022-07-23] MEDS ORDERED: ATORVASTATIN CA 20 MG TABLET (FP) NGT SCH (22:00)
[2022-07-24] MEDS ORDERED: levETIRAcetam 500 MG/5 ML INJECTION VIAL IVPB SCH (03:00)
[2022-07-24] MEDS: METOPROLOL TARTRATE 5 MG/5 ML VIAL IVPUSH SCH ×2 (03:40→09:10)
[2022-07-24] MEDS: levETIRAcetam 500 MG/5 ML INJECTION VIAL IVPB SCH ×2 (03:40→17:47)
[2022-07-24 07:21] LABS: HEMATOCRIT 31.9 % (32.4-45.2); HEMOGLOBIN 10.6 GM/dL (10.7-15.3); MCH 33.3 pg (25.7-33.7); MCHC 33.1 g/dl (32.0-36.0); MEAN CELL VOLUME 100.4 fl (80-96); MEAN PLT VOLUME 8.7 fl (7.5-11.1); PLATELET COUNT 96 10^3/uL (134-434); RBC 3.18 M/mm3 (3.60-5.2); RDW 14.8 % (11.6-15.6); WHITE BLOOD COUNT 5.5 K/mm3 (4.0-10.0)
[2022-07-24 07:44] LABS: CALCIUM 7.8 mg/dL (8.5-10.1)
[2022-07-24 07:45] LABS: ALBUMIN 2.9 g/dl (3.4-5.0); BLOOD UREA NITROGEN 30.8 mg/dL (7-18); MAGNESIUM 1.7 mg/dL (1.8-2.4)
[2022-07-24 07:48] LABS: CREATININE 0.9 mg/dL (0.55-1.3)
[2022-07-24 07:50] LABS: BILIRUBIN,TOTAL 0.8 mg/dL (0.2-1); TOT PROT 5.4 g/dl (6.4-8.2)
[2022-07-24] MEDS: MUPIROCIN 2% TOPICAL OINTMENT FOR DECOLONIZATION NS SCH ×2 (09:13→21:58)
[2022-07-24] MEDS: ENOXAPARIN NA (PORCINE) 40 MG/0.4 ML DISP.SYRIN SQ SCH (09:14)
[2022-07-24] MEDS ORDERED: METHIMAZOLE 5 MG TABLET PO SCH (10:00)
[2022-07-24] MEDS ORDERED: ENOXAPARIN NA (PORCINE) 40 MG/0.4 ML DISP.SYRIN SQ SCH (10:00)
[2022-07-24] MEDS ORDERED: DEXTROSE 5%-0.45% SALINE 1,000 ML IV SCH (10:15)
[2022-07-24] MEDS: DEXTROSE 5%-0.45% SALINE 1,000 ML IV SCH (11:40)
[2022-07-24] MEDS ORDERED: MAGNESIUM SULF 50% (8.12 MEQ/2 ML-1 GM VIAL) IVPB ONE (12:40)
[2022-07-24] MEDS: METOPROLOL TARTRATE 25 MG TABLET (FP) PO SCH (21:47)
[2022-07-24] MEDS: LACTULOSE 20 GM/30 ML UDC (FOR ORAL USE ONLY) PO SCH (21:57)
[2022-07-24] MEDS: CHLORHEXIDINE GLUCONATE 4% CLEANSER FOR DECOLONIZATION TP SCH (22:01)
[2022-07-25] MEDS: levETIRAcetam 500 MG/5 ML INJECTION VIAL IVPB SCH ×2 (02:22→16:10)
[2022-07-25 06:57] LABS: ALBUMIN 2.9 g/dl (3.4-5.0)
[2022-07-25 07:00] LABS: BILIRUBIN,DIRECT 0.4 mg/dL (0.0-0.2)
[2022-07-25 07:02] LABS: BILIRUBIN,TOTAL 0.9 mg/dL (0.2-1); TOT PROT 5.5 g/dl (6.4-8.2)
[2022-07-25 07:05] LABS: INR 1.24 (0.83-1.09); PROTHROMBIN TIME (PATIENT) 14.4 SEC (9.7-13.0)
[2022-07-25 08:25] LABS: HEMATOCRIT 31.6 % (32.4-45.2); HEMOGLOBIN 10.7 GM/dL (10.7-15.3); MCH 34.7 pg (25.7-33.7); MCHC 33.9 g/dl (32.0-36.0); MEAN CELL VOLUME 102.2 fl (80-96); MEAN PLT VOLUME 9.5 fl (7.5-11.1); PLATELET COUNT 111 10^3/uL (134-434); RDW 14.4 % (11.6-15.6); WHITE BLOOD COUNT 5.9 K/mm3 (4.0-10.0)
[2022-07-25 08:27] LABS: MAGNESIUM 2.4 mg/dL (1.8-2.4)
[2022-07-25 08:31] LABS: PHOSPHOROUS 1.6 mg/dL (2.5-4.9)
[2022-07-25] MEDS ORDERED: POTASSIUM PHOSPHATE 30 MM in SODIUM CHLORIDE 500 ML IVPB ONE (09:29)
[2022-07-25] MEDS: METOPROLOL TARTRATE 25 MG TABLET (FP) PO SCH ×2 (10:40→22:16)
[2022-07-25] MEDS: ENOXAPARIN NA (PORCINE) 40 MG/0.4 ML DISP.SYRIN SQ SCH (10:40)
[2022-07-25 15:07] LABS: COCAINE, UR NEGATIVE (NEGATIVE); OPIATES, URI NEGATIVE (NEGATIVE); PHENCYCLIDINE,URINE NEGATIVE (NEGATIVE); URINE AMPHETAMINES NEGATIVE (NEGATIVE); URINE BARBITURATES NEGATIVE (NEGATIVE)
[2022-07-25 15:08] LABS: METHADONE, UR NEGATIVE (NEGATIVE); URINE BENZODIAZEPINES NEGATIVE (NEGATIVE)
[2022-07-25] MEDS: DEXTROSE 5%-0.45% SALINE 1,000 ML IV SCH (15:27)
[2022-07-25] MEDS: THIAMINE HCL 200 MG/2 ML VIAL IVPB SCH (15:29)
[2022-07-25] MEDS: LACTULOSE 20 GM/30 ML UDC (FOR ORAL USE ONLY) PO SCH ×2 (15:29→22:16)
[2022-07-25] MEDS ORDERED: LORazepam 2 MG/ML SDV VIAL IVPUSH PRN (16:46)
[2022-07-25] MEDS: APIXABAN 2.5 MG TABLET PO SCH (22:15)
[2022-07-26] MEDS: LACTULOSE 20 GM/30 ML UDC (FOR ORAL USE ONLY) PO SCH ×4 (06:28→22:11)
[2022-07-26 08:19] LABS: BASO % 0.3 % (0-2.0); EOS % 0.7 % (0-4.5); HEMATOCRIT 30.3 % (32.4-45.2); HEMOGLOBIN 10.2 GM/dL (10.7-15.3); LYMPH % 6.9 % (8-40); MCH 33.8 pg (25.7-33.7); MCHC 33.8 g/dl (32.0-36.0); MEAN CELL VOLUME 100.1 fl (80-96); MEAN PLT VOLUME 9.4 fl (7.5-11.1); MONO % 4.3 % (3.8-10.2); NEUT % 87.8 % (42.8-82.8); PLATELET COUNT 103 10^3/uL (134-434); RBC 3.03 M/mm3 (3.60-5.2); RDW 14.6 % (11.6-15.6); WHITE BLOOD COUNT 5.1 K/mm3 (4.0-10.0)
[2022-07-26 08:36] LABS: BLOOD UREA NITROGEN 20.7 mg/dL (7-18); CALCIUM 7.4 mg/dL (8.5-10.1)
[2022-07-26 08:37] LABS: ALBUMIN 2.7 g/dl (3.4-5.0); MAGNESIUM 1.8 mg/dL (1.8-2.4)
[2022-07-26 08:38] LABS: INR 1.32 (0.83-1.09); PROTHROMBIN TIME (PATIENT) 15.3 SEC (9.7-13.0)
[2022-07-26 08:39] LABS: BILIRUBIN,DIRECT 0.3 mg/dL (0.0-0.2); CREATININE 0.8 mg/dL (0.55-1.3)
[2022-07-26 08:40] LABS: BILIRUBIN,TOTAL 0.8 mg/dL (0.2-1); TOT PROT 5.2 g/dl (6.4-8.2)
[2022-07-26] MEDS: METOPROLOL TARTRATE 25 MG TABLET (FP) PO SCH ×2 (10:22→22:09)
[2022-07-26] MEDS: levETIRAcetam 500 MG/5 ML INJECTION VIAL IVPB SCH ×2 (10:22→22:10)
[2022-07-26] MEDS: APIXABAN 2.5 MG TABLET PO SCH ×2 (10:22→22:09)
[2022-07-26] MEDS: THIAMINE HCL 200 MG/2 ML VIAL IVPB SCH (10:22)
[2022-07-26] MEDS: METHIMAZOLE 5 MG TABLET PO SCH (10:35)
[2022-07-26] MEDS: DEXTROSE 5%-0.45% SALINE 1,000 ML IV SCH (15:22)
[2022-07-27] MEDS: LACTULOSE 20 GM/30 ML UDC (FOR ORAL USE ONLY) PO SCH ×2 (07:14→13:42)
[2022-07-27 08:41] LABS: INR 1.39 (0.83-1.09); PROTHROMBIN TIME (PATIENT) 16.1 SEC (9.7-13.0)
[2022-07-27 08:44] LABS: HEMATOCRIT 30.1 % (32.4-45.2); HEMOGLOBIN 10.1 GM/dL (10.7-15.3); MCH 34.3 pg (25.7-33.7); MCHC 33.8 g/dl (32.0-36.0); MEAN CELL VOLUME 101.6 fl (80-96); MEAN PLT VOLUME 9.4 fl (7.5-11.1); PLATELET COUNT 115 10^3/uL (134-434); RBC 2.96 M/mm3 (3.60-5.2); RDW 14.6 % (11.6-15.6); WHITE BLOOD COUNT 3.7 K/mm3 (4.0-10.0)
[2022-07-27 09:14] LABS: CALCIUM 7.8 mg/dL (8.5-10.1)
[2022-07-27 09:15] LABS: MAGNESIUM 1.9 mg/dL (1.8-2.4)
[2022-07-27 09:16] LABS: ALBUMIN 2.6 g/dl (3.4-5.0); BLOOD UREA NITROGEN 20.1 mg/dL (7-18)
[2022-07-27 09:17] LABS: CREATININE 0.8 mg/dL (0.55-1.3)
[2022-07-27 09:18] LABS: BILIRUBIN,DIRECT 0.3 mg/dL (0.0-0.2); PHOSPHOROUS 2.1 mg/dL (2.5-4.9)
[2022-07-27] MEDS: METOPROLOL TARTRATE 25 MG TABLET (FP) PO SCH ×2 (09:54→21:16)
[2022-07-27] MEDS: THIAMINE HCL 200 MG/2 ML VIAL IVPB SCH ×2 (09:54→22:21)
[2022-07-27] MEDS: APIXABAN 2.5 MG TABLET PO SCH ×2 (09:54→21:16)
[2022-07-27] MEDS: levETIRAcetam 500 MG/5 ML INJECTION VIAL IVPB SCH ×2 (09:54→21:15)
[2022-07-27] MEDS: METHIMAZOLE 5 MG TABLET PO SCH (09:56)
[2022-07-27] MEDS: ASCORBIC ACID 250 MG TABLET (FP) PO SCH (09:56)
[2022-07-27] MEDS: MULTIVITAMINS (DAILY MVI) TABLET (FP) PO SCH (09:56)
[2022-07-27] MEDS ORDERED: levETIRAcetam 500 MG/5 ML INJECTION VIAL IVPB SCH (10:00)
[2022-07-27] MEDS: DEXTROSE 5%-0.45% SALINE 1,000 ML IV SCH (14:52)
[2022-07-28 07:34] LABS: HEMATOCRIT 31.5 % (32.4-45.2); HEMOGLOBIN 10.6 GM/dL (10.7-15.3); MCH 34.3 pg (25.7-33.7); MCHC 33.7 g/dl (32.0-36.0); MEAN CELL VOLUME 101.8 fl (80-96); MEAN PLT VOLUME 9.3 fl (7.5-11.1); PLATELET COUNT 123 10^3/uL (134-434); RDW 14.4 % (11.6-15.6); WHITE BLOOD COUNT 4.3 K/mm3 (4.0-10.0)
[2022-07-28 07:56] LABS: CALCIUM 7.9 mg/dL (8.5-10.1)
[2022-07-28 07:57] LABS: ALBUMIN 2.7 g/dl (3.4-5.0); BLOOD UREA NITROGEN 17.1 mg/dL (7-18); MAGNESIUM 1.7 mg/dL (1.8-2.4)
[2022-07-28 08:00] LABS: CREATININE 0.8 mg/dL (0.55-1.3); PHOSPHOROUS 2.1 mg/dL (2.5-4.9)
[2022-07-28 08:01] LABS: BILIRUBIN,TOTAL 0.9 mg/dL (0.2-1); TOT PROT 5.2 g/dl (6.4-8.2)
[2022-07-28] MEDS ORDERED: MAGNESIUM 2GM/50ML STERILE WATER IVPB IVPB ONE (08:50)
[2022-07-28] MEDS: METOPROLOL TARTRATE 25 MG TABLET (FP) PO SCH ×2 (09:51→21:06)
[2022-07-28] MEDS: ASCORBIC ACID 250 MG TABLET (FP) PO SCH (09:51)
[2022-07-28] MEDS: levETIRAcetam 500 MG/5 ML INJECTION VIAL IVPB SCH ×2 (09:51→21:49)
[2022-07-28] MEDS: LACTULOSE 20 GM/30 ML UDC (FOR ORAL USE ONLY) PO SCH ×2 (09:51→10:02)
[2022-07-28] MEDS: APIXABAN 2.5 MG TABLET PO SCH ×2 (09:51→21:06)
[2022-07-28] MEDS: MULTIVITAMINS (DAILY MVI) TABLET (FP) PO SCH (09:51)
[2022-07-28] MEDS: THIAMINE HCL 200 MG/2 ML VIAL IVPB SCH ×2 (09:51→21:06)
[2022-07-28] MEDS: NAPH,MB-DB/K PH,MBDB POWDER PACKET PO SCH ×2 (14:07→21:06)
[2022-07-28] MEDS: DEXTROSE 5%-0.45% SALINE 1,000 ML IV SCH (14:07)
[2022-07-28] MEDS ORDERED: TRIMETHOBENZAMIDE HCL 200MG/2ML INJ IM ONE (15:40)
[2022-07-28] MEDS ORDERED: MELATONIN 5 MG TABLETS PO PRN (16:59)
[2022-07-29 07:59] LABS: HEMATOCRIT 31.3 % (32.4-45.2); HEMOGLOBIN 10.6 GM/dL (10.7-15.3); MCH 33.8 pg (25.7-33.7); MEAN CELL VOLUME 99.4 fl (80-96); PLATELET COUNT 133 10^3/uL (134-434); RBC 3.15 M/mm3 (3.60-5.2); RDW 14.6 % (11.6-15.6); WHITE BLOOD COUNT 4.8 K/mm3 (4.0-10.0)
[2022-07-29 08:57] LABS: CALCIUM 8.3 mg/dL (8.5-10.1)
[2022-07-29 08:58] LABS: ALBUMIN 2.9 g/dl (3.4-5.0); BLOOD UREA NITROGEN 17.3 mg/dL (7-18); MAGNESIUM 2.2 mg/dL (1.8-2.4)
[2022-07-29 09:01] LABS: CREATININE 0.8 mg/dL (0.55-1.3); PHOSPHOROUS 2.7 mg/dL (2.5-4.9)
[2022-07-29] MEDS: DEXTROSE 5%-0.45% SALINE 1,000 ML IV SCH (09:01)
[2022-07-29 09:02] LABS: BILIRUBIN,TOTAL 0.9 mg/dL (0.2-1); TOT PROT 5.4 g/dl (6.4-8.2)
[2022-07-29] MEDS: NAPH,MB-DB/K PH,MBDB POWDER PACKET PO SCH (09:29)
[2022-07-29] MEDS: MULTIVITAMINS (DAILY MVI) TABLET (FP) PO SCH (09:29)
[2022-07-29] MEDS: LACTULOSE 20 GM/30 ML UDC (FOR ORAL USE ONLY) PO SCH (09:29)
[2022-07-29] MEDS: levETIRAcetam 500 MG/5 ML INJECTION VIAL IVPB SCH (09:29)
[2022-07-29] MEDS: THIAMINE HCL 200 MG/2 ML VIAL IVPB SCH (09:29)
[2022-07-29] MEDS: METOPROLOL TARTRATE 25 MG TABLET (FP) PO SCH (09:29)
[2022-07-29] MEDS: APIXABAN 2.5 MG TABLET PO SCH (09:29)
[2022-07-29] MEDS: ASCORBIC ACID 250 MG TABLET (FP) PO SCH (09:29)
[2022-07-29 15:40] VITALS: RESP 18
[2022-07-29 16:01] VITALS: BP 132/70; PULSE 74; TEMP 97.4
[2022-07-30 21:14] VITALS: BMI 20.1
== END 2022-07-29 19:01 | disposition home or self-care (01) | DRG 91 ==
LOC: JER 00:12 → JERBED 02:50 → JICU 09:56 → J4W 07-24 13:39
PROVIDERS: ADMIT Internal Medicine Pulmonary Disease; ATTEND Internal Medicine
PROC: 0BH17EZ Insertion of Endotracheal Airway into Trachea, Via Natural or Artificial Opening (ICD-10-PCS; principal; 2022-07-23)
PROC: 5A1935Z Respiratory Ventilation, Less than 24 Consecutive Hours (ICD-10-PCS; 2022-07-23)
DX: R47.01 Aphasia (principal); E43 Unspecified severe protein-calorie malnutrition; J96.01 Acute respiratory failure with hypoxia; G93.41 Metabolic encephalopathy; K72.00 Acute and subacute hepatic failure without coma; I42.8 Other cardiomyopathies; I50.22 Chronic systolic (congestive) heart failure; I10 Essential (primary) hypertension; E78.5 Hyperlipidemia, unspecified; I11.0 Hypertensive heart disease with heart failure; E11.9 Type 2 diabetes mellitus without complications; I48.91 Unspecified atrial fibrillation; T38.2X5A Adverse effect of antithyroid drugs, initial encounter; D69.6 Thrombocytopenia, unspecified; E05.90 Thyrotoxicosis, unspecified without thyrotoxic crisis or storm; E07.9 Disorder of thyroid, unspecified; E01.0 Iodine-deficiency related diffuse (endemic) goiter; K76.82 Hepatic encephalopathy; G40.909 Epilepsy, unspecified, not intractable, without status epilepticus; R41.82 Altered mental status, unspecified; I27.20 Pulmonary hypertension, unspecified; I08.1 Rheumatic disorders of both mitral and tricuspid valves; R79.89 Other specified abnormal findings of blood chemistry; R53.1 Weakness; Z68.20 Body mass index [BMI] 20.0-20.9, adult; H91.8X3 Other specified hearing loss, bilateral; Z85.3 Personal history of malignant neoplasm of breast; Z86.73 Personal history of transient ischemic attack (TIA), and cerebral infarction without residual deficits
CPT/HCPCS: 0241U-QW; 36415; 36600; 70450-TC; 70496-TC; 70498-TC; 70551-TC; 71045-TC-FY; 74230-TC-FY; 76705-TC; 80053; 80061; 80076; 80177; 80307; 81003; 82140; 82248; 82550; 82607; 82728; 82746; 82803; 82962; 83036; 83516; 83540; 83550; 83735; 84100; 84436; 84439; 84443; 84481; 84484; 85025; 85027; 85610; 85730; 86038; 86704; 86708; 86803; 86850; 86900; 86901; 87040; 87086; 87340; 87517; 92611-GN; 93005; 93010; 94002; 95816; 97116-GP; 97162-GP; 99291

== ENCOUNTER 2022-08-07 08:08 | Inpatient (IN) | payer OTHER, BC ==
[2022-08-07] MEDS ORDERED: levETIRAcetam 500 MG/5 ML INJECTION VIAL IVPB ONE ×2 (08:22)
[2022-08-07] MEDS ORDERED: LORazepam 2 MG/ML SDV VIAL IVPUSH ONE ×2 (08:22→08:31)
[2022-08-07 09:15] LABS: VENOUS BASE EXCESS -6.1 mmol/L (-2-2); VENOUS O2 SATURATION 46.4 % (70-80); VENOUS PCO2 60.5 mmHg (38-52)
[2022-08-07 09:16] LABS: VENOUS PH 7.194 (7.310-7.410)
[2022-08-07 09:23] LABS: INR 1.49 (0.83-1.09); PROTHROMBIN TIME (PATIENT) 17.2 SEC (9.7-13.0)
[2022-08-07 09:25] LABS: ACTIVATED PTT 33.9 SECONDS (25.2-36.5)
[2022-08-07 09:26] LABS: BLOOD UREA NITROGEN 21.6 mg/dL (7-18); CALCIUM 9.2 mg/dL (8.5-10.1); MAGNESIUM 1.8 mg/dL (1.8-2.4)
[2022-08-07 09:28] LABS: BASO % 0.5 % (0-2.0); EOS % 1.8 % (0-4.5); HEMATOCRIT 36.5 % (32.4-45.2); HEMOGLOBIN 11.8 GM/dL (10.7-15.3); LYMPH % 19.8 % (8-40); MCH 33.4 pg (25.7-33.7); MCHC 32.2 g/dl (32.0-36.0); MEAN CELL VOLUME 103.7 fl (80-96); MEAN PLT VOLUME 8.2 fl (7.5-11.1); MONO % 4.1 % (3.8-10.2); NEUT % 73.8 % (42.8-82.8); PLATELET COUNT 180 10^3/uL (134-434); RBC 3.52 M/mm3 (3.60-5.2); RDW 15.6 % (11.6-15.6); WHITE BLOOD COUNT 4.2 K/mm3 (4.0-10.0)
[2022-08-07 09:29] LABS: CREATININE 1.1 mg/dL (0.55-1.3)
[2022-08-07 09:29] LABS: EPI CELLS 31 /uL (0-25.1); HYALINE CASTS 2 /uL (0-3.1); URINE APPEARANCE CLEAR; URINE BACTERIA 117 /uL (0-1359); URINE BILIRUBIN NEGATIVE (NEGATIVE); URINE COLOR YELLOW; URINE GLUCOSE (UA) NEGATIVE (NEGATIVE); URINE KETONE NEGATIVE (NEGATIVE); URINE LEUK ESTERASE TRACE (NEGATIVE); URINE NITRITE NEGATIVE (NEGATIVE); URINE PROTEIN 1+ (NEGATIVE); URINE UROBILINOGEN 0.2 mg/dL (0.2-1.0); URINE WBC 145 /uL (0-25.8)
[2022-08-07 09:31] LABS: BILIRUBIN,TOTAL 1.2 mg/dL (0.2-1); TOT PROT 6.5 g/dl (6.4-8.2)
[2022-08-07 09:54] LABS: URINE RBC 36 /uL (0-23.9)
[2022-08-07 09:59] LABS: ALBUMIN 3.6 g/dl (3.4-5.0); LACTIC ACID 9.9 mmol/L (0.4-2.0)
[2022-08-07] MEDS ORDERED: VANCOMYCIN 1 GM in D5W (PRE-DOCKED) 1,000 MG/250 ML IVPB ONE (10:17)
[2022-08-07] MEDS ORDERED: PIPERACILLIN/TAZOB 3.375 GM 3.375 GM in DEXTROSE 5%-WATER - 50 ML IVPB ONE (10:17)
[2022-08-07 10:31] LABS: ARTERIAL BLD GAS O2 SATURATION 93.6 % (95-98); ARTERIAL BLOOD GAS BASE EXCESS 2.9 mmol/L (-2-2); ARTERIAL BLOOD GAS PO2 69.5 mmHg (80-100); ARTERIAL BLOOD GAS pH 7.385 (7.350-7.450)
[2022-08-07 10:32] LABS: ALLENS TEST POSITIVE
[2022-08-07] MEDS ORDERED: VANCOMYCIN/WATER FOR INJ (PEG) 1,000 MG/200 ML BAG IVPB ONE (10:42)
[2022-08-07] MEDS: DEXTROSE 5%-LACTATED RINGERS 1,000 ML IV SCH ×2 (12:25→21:19)
[2022-08-07] MEDS ORDERED: LORazepam 2 MG/ML SDV VIAL IVPUSH PRN (13:19)
[2022-08-07] MEDS ORDERED: SODIUM CHLORIDE 1,000 ML IV SCH (13:30)
[2022-08-07] MEDS ORDERED: PIPERACILLIN/TAZOB 2.25 GM 2.25 GM in DEXTROSE 5%-WATER - 50 ML IVPB SCH (15:00)
[2022-08-07] MEDS: METOPROLOL TARTRATE 5 MG/5 ML VIAL IVPUSH SCH ×3 (15:30→21:28)
[2022-08-07] MEDS: PIPERACILLIN/TAZOB 2.25 GM 2.25 GM in DEXTROSE 5%-WATER - 50 ML IVPB SCH ×2 (19:00→21:27)
[2022-08-07] MEDS: MUPIROCIN 2% TOPICAL OINTMENT FOR DECOLONIZATION NS SCH ×2 (19:52→21:30)
[2022-08-07] MEDS: levETIRAcetam 500 MG/5 ML INJECTION VIAL IVPB SCH (21:27)
[2022-08-07] MEDS ORDERED: ENOXAPARIN NA (PORCINE) 40 MG/0.4 ML DISP.SYRIN SQ SCH (22:00)
[2022-08-07] MEDS ORDERED: HEPARIN NA (PORCINE) 5,000 UNITS/ML 1ML VIAL SQ SCH (22:00)
[2022-08-07] MEDS ORDERED: CHLORHEXIDINE GLUCONATE 4% CLEANSER FOR DECOLONIZATION TP SCH (22:00)
[2022-08-08] MEDS: PIPERACILLIN/TAZOB 2.25 GM 2.25 GM in DEXTROSE 5%-WATER - 50 ML IVPB SCH ×2 (03:15→09:42)
[2022-08-08 06:49] LABS: BASO % 0.4 % (0-2.0); EOS % 1.1 % (0-4.5); HEMATOCRIT 32.3 % (32.4-45.2); HEMOGLOBIN 11.2 GM/dL (10.7-15.3); LYMPH % 8.7 % (8-40); MCH 34.4 pg (25.7-33.7); MCHC 34.6 g/dl (32.0-36.0); MEAN CELL VOLUME 99.7 fl (80-96); MEAN PLT VOLUME 8.3 fl (7.5-11.1); MONO % 3.5 % (3.8-10.2); NEUT % 86.3 % (42.8-82.8); PLATELET COUNT 138 10^3/uL (134-434); RBC 3.24 M/mm3 (3.60-5.2); RDW 15.1 % (11.6-15.6); WHITE BLOOD COUNT 5.3 K/mm3 (4.0-10.0)
[2022-08-08 06:51] LABS: INR 1.29 (0.83-1.09); PROTHROMBIN TIME (PATIENT) 14.9 SEC (9.7-13.0)
[2022-08-08 06:54] LABS: ACTIVATED PTT 33.4 SECONDS (25.2-36.5)
[2022-08-08 07:03] LABS: CALCIUM 8.3 mg/dL (8.5-10.1)
[2022-08-08 07:04] LABS: ALBUMIN 3.1 g/dl (3.4-5.0); MAGNESIUM 1.5 mg/dL (1.8-2.4)
[2022-08-08 07:07] LABS: CREATININE 0.9 mg/dL (0.55-1.3); PHOSPHOROUS 2.3 mg/dL (2.5-4.9)
[2022-08-08 07:08] LABS: TOT PROT 5.6 g/dl (6.4-8.2)
[2022-08-08 07:09] LABS: BILIRUBIN,TOTAL 1.2 mg/dL (0.2-1)
[2022-08-08 07:13] LABS: BLOOD UREA NITROGEN 17.3 mg/dL (7-18)
[2022-08-08] MEDS ORDERED: MAGNESIUM SULF 50% (8.12 MEQ/2 ML-1 GM VIAL) ONE (09:01)
[2022-08-08] MEDS ORDERED: MAGNESIUM 2GM/50ML STERILE WATER IVPB IVPB ONE (09:15)
[2022-08-08] MEDS: levETIRAcetam 500 MG/5 ML INJECTION VIAL IVPB SCH ×2 (09:46→21:28)
[2022-08-08] MEDS: METOPROLOL TARTRATE 5 MG/5 ML VIAL IVPUSH SCH ×4 (09:48→21:29)
[2022-08-08] MEDS: MUPIROCIN 2% TOPICAL OINTMENT FOR DECOLONIZATION NS SCH ×2 (09:49→21:30)
[2022-08-08] MEDS ORDERED: ENOXAPARIN NA (PORCINE) 40 MG/0.4 ML DISP.SYRIN SQ SCH ×2 (10:00)
[2022-08-08] MEDS ORDERED: ENOXAPARIN NA (PORCINE) 60 MG/0.6 ML DISP.SYRIN SQ SCH (10:00)
[2022-08-08] MEDS ORDERED: PANTOPRAZOLE SODIUM 40 MG VIAL IVPUSH SCH (10:00)
[2022-08-08] MEDS ORDERED: FUROSEMIDE 40 MG/4 ML INJECTABLE VIAL IVPUSH ONE (10:03)
[2022-08-08] MEDS: DEXTROSE 5%-LACTATED RINGERS 1,000 ML IV SCH (17:12)
[2022-08-08] MEDS ORDERED: LORazepam 2 MG/ML SDV VIAL IVPUSH PRN (19:37)
[2022-08-08] MEDS ORDERED: DEXTROSE 5%-LACTATED RINGERS 1,000 ML IV SCH (19:37)
[2022-08-08] MEDS ORDERED: NAPH,MB-DB/K PH,MBDB POWDER PACKET PO ONE (20:35)
[2022-08-08] MEDS ORDERED: CHLORHEXIDINE GLUCONATE 4% CLEANSER FOR DECOLONIZATION TP SCH (22:00)
[2022-08-09] MEDS: METOPROLOL TARTRATE 5 MG/5 ML VIAL IVPUSH SCH ×4 (02:02→21:38)
[2022-08-09] MEDS: levETIRAcetam 500 MG/5 ML INJECTION VIAL IVPB SCH ×2 (09:14→21:39)
[2022-08-09] MEDS: MUPIROCIN 2% TOPICAL OINTMENT FOR DECOLONIZATION NS SCH (09:15)
[2022-08-09] MEDS: PANTOPRAZOLE SODIUM 40 MG VIAL IVPUSH SCH (09:18)
[2022-08-09] MEDS: APIXABAN 2.5 MG TABLET PO SCH ×2 (09:32→21:39)
[2022-08-09] MEDS ORDERED: ENOXAPARIN NA (PORCINE) 60 MG/0.6 ML DISP.SYRIN SQ SCH ×2 (10:00)
[2022-08-09 13:22] LABS: BASO % 0.4 % (0-2.0); EOS % 1.5 % (0-4.5); HEMATOCRIT 33.3 % (32.4-45.2); HEMOGLOBIN 11.3 GM/dL (10.7-15.3); LYMPH % 8.3 % (8-40); MCH 33.7 pg (25.7-33.7); MCHC 33.9 g/dl (32.0-36.0); MEAN CELL VOLUME 99.3 fl (80-96); MEAN PLT VOLUME 7.9 fl (7.5-11.1); MONO % 4.9 % (3.8-10.2); NEUT % 84.9 % (42.8-82.8); PLATELET COUNT 124 10^3/uL (134-434); RBC 3.35 M/mm3 (3.60-5.2); RDW 15.1 % (11.6-15.6); WHITE BLOOD COUNT 3.4 K/mm3 (4.0-10.0)
[2022-08-09 13:58] LABS: CALCIUM 8.4 mg/dL (8.5-10.1)
[2022-08-09 13:59] LABS: BLOOD UREA NITROGEN 11.4 mg/dL (7-18)
[2022-08-09 14:02] LABS: CREATININE 0.9 mg/dL (0.55-1.3); PHOSPHOROUS 2.8 mg/dL (2.5-4.9)
[2022-08-10] MEDS: METOPROLOL TARTRATE 5 MG/5 ML VIAL IVPUSH SCH ×4 (03:55→21:43)
[2022-08-10] MEDS: levETIRAcetam 500 MG/5 ML INJECTION VIAL IVPB SCH ×2 (09:04→21:48)
[2022-08-10] MEDS: PANTOPRAZOLE SODIUM 40 MG VIAL IVPUSH SCH (09:06)
[2022-08-10] MEDS: APIXABAN 2.5 MG TABLET PO SCH ×2 (09:06→21:45)
[2022-08-10 09:13] LABS: HEMATOCRIT 30.9 % (32.4-45.2); HEMOGLOBIN 10.6 GM/dL (10.7-15.3); MCH 34.3 pg (25.7-33.7); MCHC 34.5 g/dl (32.0-36.0); MEAN CELL VOLUME 99.4 fl (80-96); MEAN PLT VOLUME 8.2 fl (7.5-11.1); PLATELET COUNT 113 10^3/uL (134-434); RDW 15.2 % (11.6-15.6)
[2022-08-10 09:55] LABS: ALBUMIN 2.8 g/dl (3.4-5.0); CALCIUM 8.2 mg/dL (8.5-10.1)
[2022-08-10 09:56] LABS: BLOOD UREA NITROGEN 15.6 mg/dL (7-18)
[2022-08-10 09:57] LABS: MAGNESIUM 1.9 mg/dL (1.8-2.4)
[2022-08-10 09:59] LABS: CREATININE 0.8 mg/dL (0.55-1.3); PHOSPHOROUS 2.8 mg/dL (2.5-4.9)
[2022-08-10 10:01] LABS: BILIRUBIN,TOTAL 1.1 mg/dL (0.2-1); TOT PROT 5.2 g/dl (6.4-8.2)
[2022-08-10] MEDS: ATORVASTATIN CA 20 MG TABLET (FP) PO SCH (21:48)
[2022-08-11] MEDS ORDERED: METOPROLOL TARTRATE 25 MG TABLET (FP) PO SCH (06:00)
[2022-08-11] MEDS: PANTOPRAZOLE SODIUM 40 MG VIAL IVPUSH SCH (09:18)
[2022-08-11] MEDS: metoPROLOL SUCCINATE 25 MG TAB.SR.24H (FP) PO SCH ×2 (09:20→22:27)
[2022-08-11] MEDS: busPIRone HCL 5 MG TABLET PO SCH ×2 (09:20→22:27)
[2022-08-11] MEDS: APIXABAN 2.5 MG TABLET PO SCH ×2 (09:20→22:27)
[2022-08-11] MEDS: levETIRAcetam 500 MG/5 ML INJECTION VIAL IVPB SCH ×2 (09:21→22:27)
[2022-08-11 09:31] LABS: HEMOGLOBIN 11.1 GM/dL (10.7-15.3); MCH 34.9 pg (25.7-33.7); MCHC 35.7 g/dl (32.0-36.0); MEAN CELL VOLUME 97.7 fl (80-96); MEAN PLT VOLUME 8.6 fl (7.5-11.1); PLATELET COUNT 115 10^3/uL (134-434); RBC 3.18 M/mm3 (3.60-5.2); RDW 14.6 % (11.6-15.6); WHITE BLOOD COUNT 3.2 K/mm3 (4.0-10.0)
[2022-08-11 09:42] LABS: ALBUMIN 2.9 g/dl (3.4-5.0); CALCIUM 8.7 mg/dL (8.5-10.1)
[2022-08-11 09:43] LABS: MAGNESIUM 1.9 mg/dL (1.8-2.4)
[2022-08-11 09:45] LABS: CREATININE 0.8 mg/dL (0.55-1.3); PHOSPHOROUS 2.8 mg/dL (2.5-4.9)
[2022-08-11 09:47] LABS: BILIRUBIN,TOTAL 1.2 mg/dL (0.2-1); TOT PROT 5.3 g/dl (6.4-8.2)
[2022-08-11] MEDS ORDERED: ATORVASTATIN CA 20 MG TABLET (FP) PO SCH (22:00)
[2022-08-11] MEDS: ATORVASTATIN CA 20 MG TABLET (FP) PO SCH (22:27)
[2022-08-12 09:06] LABS: HEMATOCRIT 30.8 % (32.4-45.2); HEMOGLOBIN 10.7 GM/dL (10.7-15.3); MCH 33.9 pg (25.7-33.7); MCHC 34.6 g/dl (32.0-36.0); MEAN CELL VOLUME 97.9 fl (80-96); MEAN PLT VOLUME 8.2 fl (7.5-11.1); PLATELET COUNT 109 10^3/uL (134-434); RBC 3.15 M/mm3 (3.60-5.2); RDW 14.8 % (11.6-15.6); WHITE BLOOD COUNT 3.6 K/mm3 (4.0-10.0)
[2022-08-12 09:25] LABS: CALCIUM 8.5 mg/dL (8.5-10.1)
[2022-08-12 09:26] LABS: ALBUMIN 2.9 g/dl (3.4-5.0); BLOOD UREA NITROGEN 16.9 mg/dL (7-18); MAGNESIUM 1.9 mg/dL (1.8-2.4)
[2022-08-12 09:29] LABS: CREATININE 0.8 mg/dL (0.55-1.3); PHOSPHOROUS 2.9 mg/dL (2.5-4.9)
[2022-08-12 09:30] LABS: TOT PROT 5.4 g/dl (6.4-8.2)
[2022-08-12 09:31] LABS: BILIRUBIN,TOTAL 1.2 mg/dL (0.2-1)
[2022-08-12] MEDS: APIXABAN 2.5 MG TABLET PO SCH ×2 (10:29→22:18)
[2022-08-12] MEDS: PANTOPRAZOLE SODIUM 40 MG VIAL IVPUSH SCH (10:29)
[2022-08-12] MEDS: metoPROLOL SUCCINATE 25 MG TAB.SR.24H (FP) PO SCH ×2 (10:29→22:18)
[2022-08-12] MEDS: busPIRone HCL 5 MG TABLET PO SCH ×2 (10:30→22:17)
[2022-08-12] MEDS: levETIRAcetam 500 MG/5 ML ORAL SOLUTION (UNIT-DOSE CUPS) PO SCH ×2 (12:24→22:18)
[2022-08-12 12:47] VITALS: BMI 18.5
[2022-08-12] MEDS: AMINO ACIDS/PROTEIN HYDROLYS 30 ML LIQUID.PKT PO SCH (17:21)
[2022-08-12] MEDS: INSULIN SLIDING SCALE (NOVOLOG) 1 VIAL SQ SCH ×2 (17:23→22:21)
[2022-08-12] MEDS ORDERED: LORazepam 2 MG/ML SDV VIAL IVPUSH PRN (21:10)
[2022-08-12] MEDS: ATORVASTATIN CA 20 MG TABLET (FP) PO SCH (22:18)
[2022-08-12 22:21] VITALS: RESP 18
[2022-08-13] MEDS: INSULIN SLIDING SCALE (NOVOLOG) 1 VIAL SQ SCH ×4 (05:59→21:48)
[2022-08-13] MEDS: AMINO ACIDS/PROTEIN HYDROLYS 30 ML LIQUID.PKT PO SCH ×2 (08:44→16:59)
[2022-08-13] MEDS: busPIRone HCL 5 MG TABLET PO SCH ×2 (09:08→21:48)
[2022-08-13] MEDS: levETIRAcetam 500 MG/5 ML ORAL SOLUTION (UNIT-DOSE CUPS) PO SCH ×2 (09:09→21:48)
[2022-08-13] MEDS: metoPROLOL SUCCINATE 25 MG TAB.SR.24H (FP) PO SCH ×2 (09:09→21:48)
[2022-08-13] MEDS: APIXABAN 2.5 MG TABLET PO SCH ×2 (09:09→21:48)
[2022-08-13] MEDS: MULTIVITAMINS (DAILY MVI) TABLET (FP) PO SCH (09:11)
[2022-08-13] MEDS ORDERED: PANTOPRAZOLE SODIUM 40 MG VIAL IVPUSH SCH (10:00)
[2022-08-13] MEDS: PANTOPRAZOLE 40 MG TABLET PO SCH (10:31)
[2022-08-13] MEDS: ATORVASTATIN CA 20 MG TABLET (FP) PO SCH (21:48)
[2022-08-14] MEDS: INSULIN SLIDING SCALE (NOVOLOG) 1 VIAL SQ SCH ×2 (06:27→12:08)
[2022-08-14] MEDS: APIXABAN 2.5 MG TABLET PO SCH (11:08)
[2022-08-14] MEDS: PANTOPRAZOLE 40 MG TABLET PO SCH (11:09)
[2022-08-14] MEDS: metoPROLOL SUCCINATE 25 MG TAB.SR.24H (FP) PO SCH (11:09)
[2022-08-14] MEDS: busPIRone HCL 5 MG TABLET PO SCH (11:09)
[2022-08-14] MEDS: MULTIVITAMINS (DAILY MVI) TABLET (FP) PO SCH (11:10)
[2022-08-14] MEDS: AMINO ACIDS/PROTEIN HYDROLYS 30 ML LIQUID.PKT PO SCH (11:10)
[2022-08-14] MEDS: levETIRAcetam 500 MG/5 ML ORAL SOLUTION (UNIT-DOSE CUPS) PO SCH (11:10)
[2022-08-14 14:35] VITALS: BP 136/54; PULSE 60; TEMP 98.9
== END 2022-08-14 14:32 | disposition home or self-care (01) | DRG 100 ==
LOC: JER 08:08 → JERBED 10:44 → JICU 13:52 → J4W 08-09 15:27 → J7W 08-11 01:59
PROVIDERS: ADMIT Internal Medicine
DX: R56.9 Unspecified convulsions (principal); G93.41 Metabolic encephalopathy; J18.9 Pneumonia, unspecified organism; I50.22 Chronic systolic (congestive) heart failure; I42.9 Cardiomyopathy, unspecified; E87.20 Acidosis, unspecified; Z86.73 Personal history of transient ischemic attack (TIA), and cerebral infarction without residual deficits; E05.90 Thyrotoxicosis, unspecified without thyrotoxic crisis or storm; I10 Essential (primary) hypertension; E11.9 Type 2 diabetes mellitus without complications; I48.91 Unspecified atrial fibrillation; E78.5 Hyperlipidemia, unspecified; R74.01 Elevation of levels of liver transaminase levels; R09.02 Hypoxemia
CPT/HCPCS: 0241U-QW; 36415; 36600; 70450-TC; 71045-TC-FY; 72125-TC; 73521-TC-FY; 80048; 80053; 81003; 82248; 82550; 82803; 82962; 83605; 83735; 84100; 84439; 84443; 84479; 84480; 84484; 85025; 85027; 85610; 85730; 86850; 86900; 86901; 87040; 87086; 87186; 93005; 93010; 97116-GP; 97162-GP; 99285-25

== ENCOUNTER 2022-08-27 02:59 | Observation (INO) | payer OTHER, BC ==
[2022-08-27 03:06] VITALS: BMI 21.4
[2022-08-27] MEDS ORDERED: MIDAZOLAM HCL 2 MG/2 ML SINGLE DOSE VIAL IVPUSH ONE (03:42)
[2022-08-27] MEDS ORDERED: MIDAZOLAM HCL 2 MG/2 ML SINGLE DOSE VIAL ONE (04:01)
[2022-08-27 04:20] LABS: BASO % 0.4 % (0-2.0); EOS % 1.9 % (0-4.5); HEMATOCRIT 35.8 % (32.4-45.2); HEMOGLOBIN 12.2 GM/dL (10.7-15.3); LYMPH % 17.4 % (8-40); MCH 33.7 pg (25.7-33.7); MCHC 34.1 g/dl (32.0-36.0); MEAN CELL VOLUME 98.9 fl (80-96); MONO % 3.7 % (3.8-10.2); NEUT % 76.6 % (42.8-82.8); PLATELET COUNT 158 10^3/uL (134-434); RBC 3.62 M/mm3 (3.60-5.2); RDW 14.5 % (11.6-15.6); WHITE BLOOD COUNT 6.8 K/mm3 (4.0-10.0)
[2022-08-27 04:42] LABS: ALBUMIN 3.8 g/dl (3.4-5.0); CALCIUM 9.1 mg/dL (8.5-10.1); MAGNESIUM 1.8 mg/dL (1.8-2.4)
[2022-08-27 04:45] LABS: CREATININE 0.9 mg/dL (0.55-1.3); PHOSPHOROUS 3.1 mg/dL (2.5-4.9)
[2022-08-27 04:47] LABS: BILIRUBIN,TOTAL 0.9 mg/dL (0.2-1); TOT PROT 6.9 g/dl (6.4-8.2)
[2022-08-27] MEDS ORDERED: SODIUM CHLORIDE 0.9% 500 ML INFUS.BAG IV ONE (04:57)
[2022-08-27] MEDS ORDERED: APIXABAN 2.5 MG TABLET ONE (08:20)
[2022-08-27] MEDS ORDERED: METOPROLOL TARTRATE 25 MG TABLET (FP) ONE (09:15)
[2022-08-27] MEDS ORDERED: busPIRone HCL 5 MG TABLET ONE (09:15)
[2022-08-27] MEDS ORDERED: levETIRAcetam 500 MG TABLET (FP) PO ONE (09:15)
[2022-08-27 09:26] LABS: EPI CELLS 8 /uL (0-25.1); HYALINE CASTS 1 /uL (0-3.1); URINE APPEARANCE CLEAR; URINE BACTERIA 5 /uL (0-1359); URINE BILIRUBIN NEGATIVE (NEGATIVE); URINE COLOR YELLOW; URINE GLUCOSE (UA) NEGATIVE (NEGATIVE); URINE KETONE NEGATIVE (NEGATIVE); URINE LEUK ESTERASE NEGATIVE (NEGATIVE); URINE NITRITE NEGATIVE (NEGATIVE); URINE PROTEIN TRACE (NEGATIVE); URINE RBC 74 /uL (0-23.9); URINE UROBILINOGEN 0.2 mg/dL (0.2-1.0); URINE WBC 6 /uL (0-25.8)
[2022-08-27] MEDS ORDERED: busPIRone HCL 5 MG TABLET PO SCH (10:00)
[2022-08-27] MEDS ORDERED: APIXABAN 2.5 MG TABLET PO SCH (10:00)
[2022-08-27] MEDS ORDERED: METOPROLOL TARTRATE 25 MG TABLET (FP) PO SCH (10:00)
[2022-08-27] MEDS ORDERED: levETIRAcetam 500 MG TABLET (FP) PO SCH (10:00)
[2022-08-27] MEDS ORDERED: METHIMAZOLE 5 MG TABLET PO SCH (10:00)
[2022-08-27 12:06] VITALS: RESP 18
[2022-08-27 13:56] VITALS: BP 130/77; PULSE 77; TEMP 97.7
[2022-08-27] MEDS ORDERED: ATORVASTATIN CA 20 MG TABLET (FP) PO SCH (22:00)
== END 2022-08-27 14:14 | disposition home or self-care (01) ==
LOC: JER 02:59 → JERBED 05:04 → INTOOBSV 05:04 → OBSVTOIN 07:59
PROVIDERS: ADMIT Internal Medicine; ATTEND Internal Medicine
PROC: 3E0337Z Introduction of Electrolytic and Water Balance Substance into Peripheral Vein, Percutaneous Approach (ICD-10-PCS; principal; 2022-08-27)
PROC: 3E033NZ Introduction of Analgesics, Hypnotics, Sedatives into Peripheral Vein, Percutaneous Approach (ICD-10-PCS; 2022-08-27)
DX: F41.9 Anxiety disorder, unspecified (principal); E05.90 Thyrotoxicosis, unspecified without thyrotoxic crisis or storm; I50.9 Heart failure, unspecified; Z91.041 Radiographic dye allergy status; I48.91 Unspecified atrial fibrillation; Z79.01 Long term (current) use of anticoagulants; R56.9 Unspecified convulsions; I11.0 Hypertensive heart disease with heart failure
CPT/HCPCS: 0241U-QW; 36415; 71045-TC-FY; 80053; 81003; 83605; 83735; 84100; 84439; 84443; 84479; 84484; 85025; 87086; 93005; 93010; 99285-25; G0378

== ENCOUNTER 2023-05-17 14:39 | Inpatient (IN) | payer OTHER, BC ==
[2023-05-17 16:08] LABS: BASO % 0.4 % (0-2.0); EOS % 0.7 % (0-4.5); HEMATOCRIT 34.7 % (32.4-45.2); HEMOGLOBIN 12.2 GM/dL (10.7-15.3); LYMPH % 9.8 % (8-40); MCH 35.3 pg (25.7-33.7); MCHC 35.2 g/dl (32.0-36.0); MEAN CELL VOLUME 100.3 fl (80-96); MEAN PLT VOLUME 7.7 fl (7.5-11.1); MONO % 3.5 % (3.8-10.2); NEUT % 85.6 % (42.8-82.8); PLATELET COUNT 129 10^3/uL (134-434); RBC 3.46 M/mm3 (3.60-5.2); RDW 15.2 % (11.6-15.6); WHITE BLOOD COUNT 3.7 K/mm3 (4.0-10.0)
[2023-05-17 16:33] LABS: POTASSIUM 4.3 mmol/L (3.5-5.1)
[2023-05-17 16:34] LABS: CALCIUM 9.1 mg/dL (8.5-10.1)
[2023-05-17 16:35] LABS: ALBUMIN 3.6 g/dl (3.4-5.0)
[2023-05-17 16:37] LABS: BLOOD UREA NITROGEN 23.4 mg/dL (7-18)
[2023-05-17 16:38] LABS: CREATININE 1.2 mg/dL (0.55-1.3)
[2023-05-17 16:40] LABS: TOT PROT 6.9 g/dl (6.4-8.2)
[2023-05-17 16:41] LABS: BILIRUBIN,TOTAL 0.7 mg/dL (0.2-1); INR 1.23 (0.83-1.09); PROTHROMBIN TIME (PATIENT) 14.2 SEC (9.7-13.0)
[2023-05-17 20:38] LABS: EPI CELLS 6 /uL (0-25.1); HYALINE CASTS 0 /uL (0-3.1); URINE APPEARANCE CLEAR; URINE BACTERIA 9 /uL (0-1359); URINE BILIRUBIN NEGATIVE (NEGATIVE); URINE COLOR YELLOW; URINE GLUCOSE (UA) NEGATIVE (NEGATIVE); URINE KETONE NEGATIVE (NEGATIVE); URINE LEUK ESTERASE NEGATIVE (NEGATIVE); URINE NITRITE NEGATIVE (NEGATIVE); URINE PROTEIN TRACE (NEGATIVE); URINE RBC 94 /uL (0-23.9); URINE WBC 3 /uL (0-25.8)
[2023-05-17] MEDS ORDERED: LACTATED RINGERS SOLUTION 1,000 ML/1,000 ML INFUS.BAG IV SCH (21:00)
[2023-05-17] MEDS ORDERED: ATORVASTATIN CA 20 MG TABLET (FP) PO SCH (22:00)
[2023-05-17] MEDS ORDERED: busPIRone HCL 5 MG TABLET ONE (22:13)
[2023-05-17] MEDS ORDERED: ATORVASTATIN CA 20 MG TABLET (FP) ONE (22:13)
[2023-05-17] MEDS ORDERED: levETIRAcetam 500 MG TABLET (FP) PO ONE (22:14)
[2023-05-17] MEDS ORDERED: metoPROLOL SUCCINATE 25 MG TAB.SR.24H (FP) PO ONE (22:14)
[2023-05-17] MEDS ORDERED: APIXABAN 2.5 MG TABLET ONE (22:14)
[2023-05-17] MEDS: busPIRone HCL 5 MG TABLET PO SCH (22:19)
[2023-05-17] MEDS: APIXABAN 2.5 MG TABLET PO SCH (22:19)
[2023-05-17] MEDS: metoPROLOL SUCCINATE 25 MG TAB.SR.24H (FP) PO SCH (22:19)
[2023-05-17] MEDS: levETIRAcetam 250 MG TABLET PO SCH (22:19)
[2023-05-18 07:44] LABS: BASO % 0.5 % (0-2.0); EOS % 0.3 % (0-4.5); HEMATOCRIT 30.8 % (32.4-45.2); LYMPH % 10.8 % (8-40); MCH 35.3 pg (25.7-33.7); MCHC 35.7 g/dl (32.0-36.0); MEAN CELL VOLUME 98.9 fl (80-96); MEAN PLT VOLUME 7.8 fl (7.5-11.1); MONO % 3.9 % (3.8-10.2); NEUT % 84.5 % (42.8-82.8); PLATELET COUNT 116 10^3/uL (134-434); RBC 3.11 M/mm3 (3.60-5.2); RDW 15.2 % (11.6-15.6); WHITE BLOOD COUNT 5.6 K/mm3 (4.0-10.0)
[2023-05-18 09:05] LABS: POTASSIUM 3.6 mmol/L (3.5-5.1)
[2023-05-18 09:15] LABS: ALBUMIN 3.2 g/dl (3.4-5.0); BLOOD UREA NITROGEN 24.9 mg/dL (7-18); MAGNESIUM 1.7 mg/dL (1.8-2.4)
[2023-05-18 09:18] LABS: CREATININE 0.8 mg/dL (0.55-1.3)
[2023-05-18 09:19] LABS: BILIRUBIN,TOTAL 0.8 mg/dL (0.2-1)
[2023-05-18] MEDS: busPIRone HCL 5 MG TABLET PO SCH ×2 (09:39→21:59)
[2023-05-18] MEDS: levETIRAcetam 250 MG TABLET PO SCH ×2 (09:39→21:59)
[2023-05-18] MEDS: APIXABAN 2.5 MG TABLET PO SCH ×2 (09:39→21:59)
[2023-05-18] MEDS: metoPROLOL SUCCINATE 25 MG TAB.SR.24H (FP) PO SCH ×2 (09:39→21:59)
[2023-05-18] MEDS: ASPIRIN 81 MG CHEWABLE TABLETS PO SCH (09:40)
[2023-05-18] MEDS: amLODIPine BESYLATE 5 MG TABLET (FP) PO SCH (09:40)
[2023-05-18] MEDS: PANTOPRAZOLE SODIUM 40 MG VIAL IVPUSH SCH (09:53)
[2023-05-18] MEDS: METHIMAZOLE 5 MG TABLET PO SCH (10:52)
[2023-05-18 14:50] LABS: URINE BARBITURATES NEGATIVE (NEGATIVE)
[2023-05-18 14:51] LABS: METHADONE, UR NEGATIVE (NEGATIVE); OPIATES, URI NEGATIVE (NEGATIVE); PHENCYCLIDINE,URINE NEGATIVE (NEGATIVE); URINE BENZODIAZEPINES NEGATIVE (NEGATIVE)
[2023-05-18 15:06] LABS: COCAINE, UR NEGATIVE (NEGATIVE); URINE AMPHETAMINES NEGATIVE (NEGATIVE)
[2023-05-18] MEDS: ATORVASTATIN CA 40 MG TABLET (FP) PO SCH (21:59)
[2023-05-18] MEDS ORDERED: MELATONIN 5 MG TABLETS PO ONE (21:59)
[2023-05-19] MEDS: amLODIPine BESYLATE 5 MG TABLET (FP) PO SCH (10:18)
[2023-05-19] MEDS: ASPIRIN 81 MG CHEWABLE TABLETS PO SCH (10:18)
[2023-05-19] MEDS: APIXABAN 2.5 MG TABLET PO SCH ×2 (10:18→21:54)
[2023-05-19] MEDS: busPIRone HCL 5 MG TABLET PO SCH ×2 (10:18→21:55)
[2023-05-19] MEDS: METHIMAZOLE 5 MG TABLET PO SCH (10:18)
[2023-05-19] MEDS: metoPROLOL SUCCINATE 25 MG TAB.SR.24H (FP) PO SCH ×2 (10:18→21:55)
[2023-05-19] MEDS: levETIRAcetam 250 MG TABLET PO SCH ×2 (10:18→21:54)
[2023-05-19] MEDS: PANTOPRAZOLE SODIUM 40 MG VIAL IVPUSH SCH (10:19)
[2023-05-19 13:08] VITALS: BMI 16.6
[2023-05-19] MEDS: ATORVASTATIN CA 40 MG TABLET (FP) PO SCH (21:55)
[2023-05-20] MEDS: APIXABAN 2.5 MG TABLET PO SCH ×2 (10:30→22:22)
[2023-05-20] MEDS: levETIRAcetam 250 MG TABLET PO SCH ×2 (10:30→22:22)
[2023-05-20] MEDS: ASPIRIN 81 MG CHEWABLE TABLETS PO SCH (10:30)
[2023-05-20] MEDS: metoPROLOL SUCCINATE 25 MG TAB.SR.24H (FP) PO SCH ×2 (10:30→22:22)
[2023-05-20] MEDS: amLODIPine BESYLATE 5 MG TABLET (FP) PO SCH (10:30)
[2023-05-20] MEDS: busPIRone HCL 5 MG TABLET PO SCH ×2 (10:30→22:21)
[2023-05-20] MEDS: PANTOPRAZOLE SODIUM 40 MG VIAL IVPUSH SCH (10:30)
[2023-05-20 13:37] LABS: ARTERIAL BLD GAS O2 SATURATION 98.8 % (95-98); ARTERIAL BLOOD GAS BASE EXCESS 2.2 mmol/L (-2-2); ARTERIAL BLOOD GAS PO2 138.2 mmHg (80-100); ARTERIAL BLOOD GAS pH 7.433 (7.350-7.450)
[2023-05-20 13:42] LABS: ALLENS TEST POSITIVE
[2023-05-20] MEDS: ATORVASTATIN CA 40 MG TABLET (FP) PO SCH (22:22)
[2023-05-20] MEDS ORDERED: ACETAMINOPHEN 1000 MG/100 ML BAG IVPB ONE (23:01)
[2023-05-21 07:12] LABS: HEMATOCRIT 35.8 % (32.4-45.2); HEMOGLOBIN 12.2 GM/dL (10.7-15.3); MCH 34.1 pg (25.7-33.7); MCHC 34.1 g/dl (32.0-36.0); MEAN CELL VOLUME 99.8 fl (80-96); MEAN PLT VOLUME 8.3 fl (7.5-11.1); PLATELET COUNT 120 10^3/uL (134-434); RBC 3.58 M/mm3 (3.60-5.2); RDW 15.4 % (11.6-15.6); WHITE BLOOD COUNT 7.5 K/mm3 (4.0-10.0)
[2023-05-21 07:19] LABS: POTASSIUM 3.8 mmol/L (3.5-5.1)
[2023-05-21 07:25] LABS: BLOOD UREA NITROGEN 31.6 mg/dL (7-18); CALCIUM 8.9 mg/dL (8.5-10.1)
[2023-05-21] MEDS: ASPIRIN 81 MG CHEWABLE TABLETS PO SCH (09:47)
[2023-05-21] MEDS: metoPROLOL SUCCINATE 25 MG TAB.SR.24H (FP) PO SCH ×2 (09:47→22:27)
[2023-05-21] MEDS: levETIRAcetam 250 MG TABLET PO SCH ×2 (09:47→22:27)
[2023-05-21] MEDS: APIXABAN 2.5 MG TABLET PO SCH ×2 (09:47→22:27)
[2023-05-21] MEDS: amLODIPine BESYLATE 5 MG TABLET (FP) PO SCH (09:47)
[2023-05-21] MEDS: busPIRone HCL 5 MG TABLET PO SCH ×2 (09:47→22:27)
[2023-05-21] MEDS: PANTOPRAZOLE SODIUM 40 MG VIAL IVPUSH SCH (09:54)
[2023-05-21] MEDS: ATORVASTATIN CA 40 MG TABLET (FP) PO SCH (22:27)
[2023-05-22 06:56] LABS: HEMATOCRIT 37.4 % (32.4-45.2); HEMOGLOBIN 12.7 GM/dL (10.7-15.3); MCH 34.3 pg (25.7-33.7); MCHC 33.8 g/dl (32.0-36.0); MEAN CELL VOLUME 101.5 fl (80-96); MEAN PLT VOLUME 8.4 fl (7.5-11.1); PLATELET COUNT 134 10^3/uL (134-434); RBC 3.69 M/mm3 (3.60-5.2); RDW 15.6 % (11.6-15.6)
[2023-05-22 07:04] LABS: POTASSIUM 3.5 mmol/L (3.5-5.1)
[2023-05-22 07:09] LABS: CALCIUM 8.8 mg/dL (8.5-10.1)
[2023-05-22 07:10] LABS: BLOOD UREA NITROGEN 27.7 mg/dL (7-18); MAGNESIUM 1.9 mg/dL (1.8-2.4)
[2023-05-22 07:13] LABS: PHOSPHOROUS 3.1 mg/dL (2.5-4.9)
[2023-05-22 07:14] LABS: TOT PROT 6.1 g/dl (6.4-8.2)
[2023-05-22 07:15] LABS: BILIRUBIN,TOTAL 1.2 mg/dL (0.2-1)
[2023-05-22] MEDS: PANTOPRAZOLE SODIUM 40 MG VIAL IVPUSH SCH (10:19)
[2023-05-22] MEDS: APIXABAN 2.5 MG TABLET PO SCH ×2 (10:20→23:17)
[2023-05-22] MEDS: busPIRone HCL 5 MG TABLET PO SCH ×2 (10:20→23:17)
[2023-05-22] MEDS: ASPIRIN 81 MG CHEWABLE TABLETS PO SCH (10:20)
[2023-05-22] MEDS: metoPROLOL SUCCINATE 25 MG TAB.SR.24H (FP) PO SCH ×2 (10:20→23:17)
[2023-05-22] MEDS: amLODIPine BESYLATE 5 MG TABLET (FP) PO SCH (10:20)
[2023-05-22] MEDS: levETIRAcetam 250 MG TABLET PO SCH ×2 (10:20→23:17)
[2023-05-22] MEDS: ATORVASTATIN CA 40 MG TABLET (FP) PO SCH (23:17)
[2023-05-23 05:55] VITALS: RESP 18
[2023-05-23 07:04] LABS: HEMATOCRIT 33.5 % (32.4-45.2); HEMOGLOBIN 11.4 GM/dL (10.7-15.3); MCH 34.1 pg (25.7-33.7); MEAN CELL VOLUME 100.2 fl (80-96); MEAN PLT VOLUME 8.1 fl (7.5-11.1); PLATELET COUNT 135 10^3/uL (134-434); RBC 3.35 M/mm3 (3.60-5.2); WHITE BLOOD COUNT 4.2 K/mm3 (4.0-10.0)
[2023-05-23 07:15] LABS: BLOOD UREA NITROGEN 32.6 mg/dL (7-18); CALCIUM 9.5 mg/dL (8.5-10.1)
[2023-05-23 07:18] LABS: CREATININE 0.9 mg/dL (0.55-1.3)
[2023-05-23 08:44] VITALS: BP 137/83; PULSE 74; TEMP 98.6
[2023-05-23] MEDS ORDERED: POTASSIUM CHLORIDE ORAL LIQUID 20 MEQ/15 ML PO ONE (09:00)
[2023-05-23] MEDS: levETIRAcetam 250 MG TABLET PO SCH (09:50)
[2023-05-23] MEDS: amLODIPine BESYLATE 5 MG TABLET (FP) PO SCH (09:51)
[2023-05-23] MEDS: ASPIRIN 81 MG CHEWABLE TABLETS PO SCH (09:51)
[2023-05-23] MEDS: metoPROLOL SUCCINATE 25 MG TAB.SR.24H (FP) PO SCH (09:51)
[2023-05-23] MEDS: busPIRone HCL 5 MG TABLET PO SCH (09:51)
[2023-05-23] MEDS: APIXABAN 2.5 MG TABLET PO SCH (09:51)
[2023-05-23] MEDS ORDERED: PANTOPRAZOLE 40 MG TABLET PO SCH (10:00)
== END 2023-05-23 12:28 | disposition home health service (06) | DRG 948 ==
LOC: JER 14:39 → JERBED 18:43 → J4W 05-18 03:03
PROVIDERS: ADMIT Internal Medicine; ATTEND Internal Medicine
DX: R41.0 Disorientation, unspecified (principal); I50.22 Chronic systolic (congestive) heart failure; I48.91 Unspecified atrial fibrillation; E05.90 Thyrotoxicosis, unspecified without thyrotoxic crisis or storm; G40.909 Epilepsy, unspecified, not intractable, without status epilepticus; F41.8 Other specified anxiety disorders; I11.0 Hypertensive heart disease with heart failure; I27.20 Pulmonary hypertension, unspecified; I08.1 Rheumatic disorders of both mitral and tricuspid valves; R19.7 Diarrhea, unspecified; E78.5 Hyperlipidemia, unspecified; Z85.3 Personal history of malignant neoplasm of breast
CPT/HCPCS: 0241U-QW; 36415; 36600; 70450-TC; 71046-TC-FY; 80048; 80053; 80061; 80177; 80307; 81003; 82140; 82550; 82607; 82746; 82803; 82962; 83036; 83735; 84100; 84439; 84443; 84484; 85025; 85027; 85610; 85730; 86850; 86900; 86901; 87045; 87046; 87324; 87449; 93005; 93010; 97116-GP; 97161-GP; 99285-25

== ENCOUNTER 2023-10-11 23:41 | Inpatient (IN) | payer OTHER, BC ==
[2023-10-11 23:46] VITALS: BMI 36.6
[2023-10-12 00:22] LABS: BASO % 0.3 % (0-2.0); EOS % 1.6 % (0-4.5); HEMATOCRIT 36.4 % (32.4-45.2); HEMOGLOBIN 12.8 GM/dL (10.7-15.3); LYMPH % 24.1 % (8-40); MCH 34.7 pg (25.7-33.7); MCHC 35.1 g/dl (32.0-36.0); MEAN CELL VOLUME 98.7 fl (80-96); MEAN PLT VOLUME 7.4 fl (7.5-11.1); MONO % 4.3 % (3.8-10.2); NEUT % 69.7 % (42.8-82.8); PLATELET COUNT 165 10^3/uL (134-434); RBC 3.68 M/mm3 (3.60-5.2); RDW 15.9 % (11.6-15.6); WHITE BLOOD COUNT 6.2 K/mm3 (4.0-10.0)
[2023-10-12 00:26] LABS: INR 1.44 (0.83-1.09); PROTHROMBIN TIME (PATIENT) 16.4 SEC (9.7-13.0)
[2023-10-12 00:40] LABS: POTASSIUM 3.7 mmol/L (3.5-5.1)
[2023-10-12 00:42] LABS: CALCIUM 9.1 mg/dL (8.5-10.1)
[2023-10-12 00:43] LABS: ALBUMIN 3.8 g/dl (3.4-5.0); BLOOD UREA NITROGEN 29.6 mg/dL (7-18)
[2023-10-12 00:46] LABS: CREATININE 1.2 mg/dL (0.55-1.3)
[2023-10-12 00:48] LABS: BILIRUBIN,TOTAL 1.3 mg/dL (0.2-1); TOT PROT 7.2 g/dl (6.4-8.2)
[2023-10-12 01:28] LABS: LACTIC ACID 3.2 mmol/L (0.4-2.0)
[2023-10-12] MEDS: SODIUM CHLORIDE 0.9% 500 ML INFUS.BAG IV ONE (02:04)
[2023-10-12 02:58] LABS: EPI CELLS 3 /uL (0-25.1); HYALINE CASTS 0 /uL (0-3.1); PH,URINE 5.5 (5.0-8.0); URINE APPEARANCE CLEAR; URINE BACTERIA >9,000 /uL (0-1359); URINE BILIRUBIN NEGATIVE (NEGATIVE); URINE COLOR YELLOW; URINE GLUCOSE (UA) NEGATIVE (NEGATIVE); URINE KETONE NEGATIVE (NEGATIVE); URINE LEUK ESTERASE 2+ (NEGATIVE); URINE NITRITE POSITIVE (NEGATIVE); URINE PROTEIN TRACE (NEGATIVE); URINE RBC 30 /uL (0-23.9); URINE WBC 262 /uL (0-25.8)
[2023-10-12] MEDS ORDERED: CEFTRIAXONE 1 GM/50 ML BAG ONE ×2 (03:10→09:10)
[2023-10-12 06:11] LABS: ALBUMIN 3.5 g/dl (3.4-5.0); BLOOD UREA NITROGEN 29.6 mg/dL (7-18); CALCIUM 8.2 mg/dL (8.5-10.1); MAGNESIUM 1.7 mg/dL (1.8-2.4)
[2023-10-12 06:14] LABS: PHOSPHOROUS 3.3 mg/dL (2.5-4.9)
[2023-10-12 06:15] LABS: CREATININE 0.9 mg/dL (0.55-1.3)
[2023-10-12 06:16] LABS: BILIRUBIN,TOTAL 0.8 mg/dL (0.2-1); TOT PROT 6.6 g/dl (6.4-8.2)
[2023-10-12 06:31] LABS: BASO % 0.1 % (0-2.0); EOS % 0.4 % (0-4.5); HEMATOCRIT 34.3 % (32.4-45.2); HEMOGLOBIN 11.8 GM/dL (10.7-15.3); LYMPH % 9.6 % (8-40); MCH 34.1 pg (25.7-33.7); MCHC 34.4 g/dl (32.0-36.0); MEAN CELL VOLUME 98.9 fl (80-96); MEAN PLT VOLUME 7.6 fl (7.5-11.1); MONO % 2.3 % (3.8-10.2); NEUT % 87.6 % (42.8-82.8); PLATELET COUNT 143 10^3/uL (134-434); RBC 3.47 M/mm3 (3.60-5.2); WHITE BLOOD COUNT 6.1 K/mm3 (4.0-10.0)
[2023-10-12] MEDS ORDERED: APIXABAN 2.5 MG TABLET ONE (09:09)
[2023-10-12] MEDS ORDERED: busPIRone HCL 5 MG TABLET ONE (09:09)
[2023-10-12] MEDS ORDERED: metoPROLOL SUCCINATE 25 MG TAB.SR.24H (FP) PO ONE (09:09)
[2023-10-12] MEDS ORDERED: levETIRAcetam 500 MG TABLET (FP) PO ONE (09:09)
[2023-10-12] MEDS ORDERED: amLODIPine BESYLATE 2.5 MG TABLET (FP) ONE (09:10)
[2023-10-12] MEDS: metoPROLOL SUCCINATE 25 MG TAB.SR.24H (FP) PO SCH (09:19)
[2023-10-12] MEDS: CEFTRIAXONE 1 GM in DEXTROSE 5%-WATER - 50 ML IVPB SCH (09:19)
[2023-10-12] MEDS: APIXABAN 2.5 MG TABLET PO SCH (09:19)
[2023-10-12] MEDS: amLODIPine BESYLATE 5 MG TABLET (FP) PO SCH (09:19)
[2023-10-12] MEDS: busPIRone HCL 5 MG TABLET PO SCH (09:19)
[2023-10-12] MEDS ORDERED: PATIENT'S OWN MEDICATION (NON-FORMULARY) (Levetiracetam [Levetiracetam] 750 MG Tablet) PO SCH (10:00)
[2023-10-12] MEDS: ATORVASTATIN CA 20 MG TABLET (FP) PO SCH (21:32)
[2023-10-13 07:59] LABS: BASO % 0.5 % (0-2.0); EOS % 1.6 % (0-4.5); HEMOGLOBIN 11.3 GM/dL (10.7-15.3); LYMPH % 13.3 % (8-40); MCHC 35.3 g/dl (32.0-36.0); MEAN CELL VOLUME 99.4 fl (80-96); MEAN PLT VOLUME 7.2 fl (7.5-11.1); MONO % 4.8 % (3.8-10.2); NEUT % 79.8 % (42.8-82.8); PLATELET COUNT 138 10^3/uL (134-434); RBC 3.22 M/mm3 (3.60-5.2); RDW 15.4 % (11.6-15.6); WHITE BLOOD COUNT 3.7 K/mm3 (4.0-10.0)
[2023-10-13 08:15] LABS: POTASSIUM 3.7 mmol/L (3.5-5.1)
[2023-10-13 08:18] LABS: CALCIUM 8.6 mg/dL (8.5-10.1)
[2023-10-13 08:19] LABS: ALBUMIN 3.2 g/dl (3.4-5.0); BLOOD UREA NITROGEN 22.5 mg/dL (7-18); MAGNESIUM 1.9 mg/dL (1.8-2.4)
[2023-10-13 08:22] LABS: CREATININE 0.7 mg/dL (0.55-1.3)
[2023-10-13 08:24] LABS: BILIRUBIN,TOTAL 0.8 mg/dL (0.2-1); TOT PROT 6.1 g/dl (6.4-8.2)
[2023-10-13] MEDS: METHIMAZOLE 5 MG TABLET PO SCH (18:31)
[2023-10-13] MEDS: HEPARIN NA (PORCINE) 5,000 UNITS/ML 1ML VIAL SQ SCH (21:14)
[2023-10-14 07:43] LABS: BASO % 0.4 % (0-2.0); EOS % 2.3 % (0-4.5); HEMATOCRIT 32.8 % (32.4-45.2); HEMOGLOBIN 11.5 GM/dL (10.7-15.3); MCH 34.5 pg (25.7-33.7); MEAN CELL VOLUME 98.5 fl (80-96); MEAN PLT VOLUME 7.1 fl (7.5-11.1); MONO % 4.4 % (3.8-10.2); NEUT % 68.9 % (42.8-82.8); PLATELET COUNT 145 10^3/uL (134-434); RBC 3.33 M/mm3 (3.60-5.2); RDW 15.8 % (11.6-15.6)
[2023-10-14 08:01] LABS: POTASSIUM 3.6 mmol/L (3.5-5.1)
[2023-10-14 08:06] LABS: CALCIUM 8.7 mg/dL (8.5-10.1)
[2023-10-14 08:08] LABS: ALBUMIN 3.2 g/dl (3.4-5.0); MAGNESIUM 1.9 mg/dL (1.8-2.4)
[2023-10-14 08:11] LABS: CREATININE 0.8 mg/dL (0.55-1.3)
[2023-10-14 08:13] LABS: TOT PROT 6.1 g/dl (6.4-8.2)
[2023-10-15 07:20] LABS: BASO % 0.7 % (0-2.0); EOS % 1.8 % (0-4.5); HEMATOCRIT 33.1 % (32.4-45.2); HEMOGLOBIN 11.4 GM/dL (10.7-15.3); LYMPH % 20.6 % (8-40); MCH 34.5 pg (25.7-33.7); MCHC 34.4 g/dl (32.0-36.0); MEAN PLT VOLUME 7.1 fl (7.5-11.1); MONO % 4.4 % (3.8-10.2); NEUT % 72.5 % (42.8-82.8); PLATELET COUNT 141 10^3/uL (134-434); RBC 3.31 M/mm3 (3.60-5.2); RDW 15.4 % (11.6-15.6); WHITE BLOOD COUNT 3.1 K/mm3 (4.0-10.0)
[2023-10-15 07:36] LABS: POTASSIUM 3.4 mmol/L (3.5-5.1)
[2023-10-15 07:44] LABS: ALBUMIN 3.2 g/dl (3.4-5.0); BLOOD UREA NITROGEN 24.1 mg/dL (7-18); CALCIUM 8.8 mg/dL (8.5-10.1); MAGNESIUM 1.9 mg/dL (1.8-2.4)
[2023-10-15 07:46] LABS: PHOSPHOROUS 2.4 mg/dL (2.5-4.9)
[2023-10-15 07:48] LABS: BILIRUBIN,TOTAL 1.1 mg/dL (0.2-1); CREATININE 0.7 mg/dL (0.55-1.3)
[2023-10-15 08:55] VITALS: PULSE 64
[2023-10-15] MEDS: POTASSIUM CHLORIDE ORAL LIQUID 20 MEQ/15 ML PO ONE (09:16)
[2023-10-15] MEDS: NAPH,MB-DB/K PH,MBDB POWDER PACKET PO SCH (09:17)
[2023-10-15 14:09] VITALS: BP 137/64; RESP 18; TEMP 97.5
== END 2023-10-15 15:19 | disposition home or self-care (01) | DRG 690 ==
LOC: JER 23:41 → JERBED 10-12 03:34 → J4W 10-12 14:33 → OBSVTOIN 10-13 13:03
PROVIDERS: ADMIT Internal Medicine; ATTEND Internal Medicine
DX: N39.0 Urinary tract infection, site not specified (principal); I48.20 Chronic atrial fibrillation, unspecified; F33.9 Major depressive disorder, recurrent, unspecified; I50.22 Chronic systolic (congestive) heart failure; R47.01 Aphasia; N17.9 Acute kidney failure, unspecified; G40.909 Epilepsy, unspecified, not intractable, without status epilepticus; E78.5 Hyperlipidemia, unspecified; F41.8 Other specified anxiety disorders; R45.1 Restlessness and agitation; R26.9 Unspecified abnormalities of gait and mobility; D25.9 Leiomyoma of uterus, unspecified; B96.20 Unspecified Escherichia coli [E. coli] as the cause of diseases classified elsewhere; F03.90 Unspecified dementia, unspecified severity, without behavioral disturbance, psychotic disturbance, mood disturbance, and anxiety; R55 Syncope and collapse; I08.1 Rheumatic disorders of both mitral and tricuspid valves; F41.0 Panic disorder [episodic paroxysmal anxiety]; I11.0 Hypertensive heart disease with heart failure; E05.90 Thyrotoxicosis, unspecified without thyrotoxic crisis or storm; Z85.3 Personal history of malignant neoplasm of breast; Z86.73 Personal history of transient ischemic attack (TIA), and cerebral infarction without residual deficits
CPT/HCPCS: 36415; 70450-TC; 71045-TC-FY; 72125-TC; 72170-TC-FY; 72192-TC; 74150-TC; 80053; 81003; 82962; 83605; 83735; 84100; 84439; 84443; 84480; 84484; 85025; 85610; 85730; 86850; 86900; 86901; 87086; 87186; 93005; 93010; 97116-GP; 97162-GP; 99285-25; G0378; J1644

== ENCOUNTER 2024-03-15 18:47 | Emergency (ER) | payer OTHER, BC ==
[2024-03-15 19:13] VITALS: BMI 17.9
[2024-03-15 19:28] VITALS: RESP 18; TEMP 97.6
[2024-03-15] MEDS ORDERED: ALPRAZolam 1 MG TABLET PO PRN (21:06)
[2024-03-16 02:50] VITALS: BP 135/63; PULSE 67
== END 2024-03-16 03:07 | disposition home or self-care (01) ==
LOC: JER 18:47
DX: F41.9 Anxiety disorder, unspecified (principal)
CPT/HCPCS: 71045-TC-FY; 93005; 93010; 99284-25